=== PATIENT | male | born 1985 | race African-American/Black ===

== ENCOUNTER 2024-08-31 09:20 | Emergency (ER) | payer OTHER, SELFPAY ==
--- NOTE | ~2024-08-31 | XR_ITS ---
EXAMINATION: XR chest 2V DATE: 08/31/2024 09:52 INDICATION: Chest pain TECHNIQUE: PA and lateral views of the chest were obtained. COMPARISON: None FINDINGS: The lungs are clear with no focal airspace opacities, pulmonary edema, pleural effusion or pneumothor ax. The cardiomediastinal silhouette is normal. Mild thoracic spondylosis with chronic appearing mild anterior wedging of a few lower thoracic vertebral bodies. IMPRESSION: 1. No acute cardiopulmonary disease. Reviewed, dictated and finalized at location A.
--- NOTE | 2024-08-31 09:24 | ECG_ITS ---
Test Date: 2024-08-31 09:29:44 Measurements Intervals [place] Rate: 78 P: 58 NH: 144 QRS: 48 QRSD: 86 T: 24 QT: 356 QTc: 406 Interpretive Statements SINUS RHYTHM MINIMAL Q WAVES- INFERIOR LEADS BORDERLINE ECG No previous ECG available for comparison Electronically Signed On 08-31-2024 09:54:03 CDT by Tam Zhou D.O.
[2024-08-31 09:29] VITALS: BP 125/78; PULSE 77; PULSE 79; RESP 18; RESP 7; TEMP 36.6; O2SAT 98; O2SAT 99
[2024-08-31] MEDS: ASPIRIN 81 MG CHEWABLE TABLET 324 MG PO (09:34)
--- NOTE | 2024-08-31 09:38 | ED_ITS ---
HPI - Chest Pain General Chief Complaint: Chest Pain Stated Complaint: chest pain with breath or swallowing Time Seen by Provider: 08/31/24 09:38 Source: patient Mode of arrival: ambulatory Limitations: no limitations History of Present Illness HPI narrative: Patient is a 38-year-old male who presents the ED with report of painful swallowing. Patient reports he developed slight chest tightness yesterday, worse when he would burp or swallow. Pain presented again this morning and was slightly worse than yesterday. Feels as though whenever he eats or drinks something it becomes stuck in his chest. Denies feeling short of breath. Denies N/V, fevers, swelling in legs, Hx of blood clots, FHx of cardiac disease. Denies known hx of GERD. Related Data Allergies Allergy/AdvReac Type Severity Reaction Status Date / Time No Known Allergies Allergy Verified 08/31/24 09:33 Review of Systems 2 Review of Systems: All systems reviewed & are unremarkable except as noted in HPI. All systems reviewed & are unremarkable except as noted in HPI and below Exam 2 Narrative: GENERAL: Well appearing, well-nourished, non-toxic, in no acute distress. HEAD: Normocephalic, atraumatic. RESPIRATORY: Airway patent, respirations nonlabored. Clear to auscultation bilaterally, no rales, rhonchi, wheezing. CARDIOVASCULAR: Regular rate and rhythm without murmurs, rubs, or gallops. MUSCULOSKELETAL: Moves all extremities. No gross deformities. No peripheral edema. No calf tenderness. No midsternal chest wall tenderness to palpation. SKIN: Warm, dry, normal color. NEURO: A&O X3. Speech clear. Cranial nerves II-XII grossly intact. Steady gait. No ataxic movements. PSYCHIATRIC: Appropriate mood and affect. Normal interaction. Course Vital Signs Vital signs: Vital Signs Temperature 97.8 F 08/31/24 09:29 Pulse Rate 77 08/31/24 09:29 Respiratory Rate 18 08/31/24 09:29 Blood Pressure 125/78 08/31/24 09:29 Pulse Oximetry 99 08/31/24 09:29 Oxygen Delivery Room Air 08/31/24 09:29 Temperature 97.8 F 08/31/24 09:29 Pulse Rate 74 08/31/24 11:01 Respiratory Rate 19 08/31/24 11:01 Blood Pressure 123/89 08/31/24 11:01 Pulse Oximetry 100 08/31/24 11:01 Oxygen Delivery Room Air 08/31/24 09:29 MDM - Chest Pain MDM Narrative Medical decision making narrative: EKG without ischemic changes. Troponin undetectable. Low suspicion for ACS. Pain has been ongoing since yesterday. PERC negative. Low suspicion for PE. Denies any SOB. No tachycardia or hypoxia, evidence of DVT on exam. Chest x-ray is clear. Remainder basic laboratory studies are unremarkable. Discussed likelihood of GERD/esophagitis. Patient feeling slightly improved after GI cocktail and Pepcid. Discussed prescribing a PPI for home use. Patient reports he does not feel he will take this. Discussed [id number]-[id number] options if he does feel he needs to take something for his symptoms. Recommended close follow-up with PCP for further evaluation. Given return precautions. He agrees with plan. Discharged in stable condition. Medical Records Data Attestation: I reviewed the patient's medical records. Lab Data Attestation: I reviewed the patient's lab results. 08/31/24 09:36 08/31/24 09:36 Labs: Lab Results 08/31/24 Range/Units 09:36 WBC 9.7 (4.5-10.0) K/mm3 RBC 4.93 (4.6-6.20) M/mm3 Hgb 14.6 (14.0-18.0) g/dL Hct 44.1 (42.0-52.0) % MCV 89.5 (80-100) fl MCH 29.6 (26-34) pg MCHC 33.1 (32-36) g/dl RDW 12.5 (11.5-14.5) % Plt Count 281 (150-375) k/mm3 MPV 10.1 (7.4-10.4) fl Immature Gran % (Auto) 0.3 (0-0.5) % Neut % (Auto) 71.7 (45.5-73.1) % Lymph % (Auto) 18.0 L (18.3-44.2) % [place] % (Auto) 8.7 H (2.6-8.5) % Eos % (Auto) 0.8 (0-4.4) % Baso % (Auto) 0.5 (0.2-1.2) % Lymph # (Auto) 1.74 (0.9-3.2) K/mm3 [place] # (Auto) 0.8 H (0.1-0.6) K/mm3 Eos # (Auto) 0.1 (0-0.3) K/mm3 Baso # (Auto) 0.1 (0.0-0.1) K/mm3 Abs Immat Gran (auto) 0.03 (0.00-0.031) K/mm3 Absolute Neuts (auto) 6.9 H (1.3-6.7) K/mm3 Absolute Nucleated RBC 0.000 (0.0-0.012) K/mm3 Nucleated RBC % 0.0 (0.0-0.2) % PT 12.8 (11.1-14.7) Seconds INR 0.9 APTT 27.8 (22.3-36.8) Seconds Sodium 139 (137-145) mmol/L Potassium 4.5 (3.4-5.0) mmol/L Chloride 106 (98-107) mmol/L Carbon Dioxide 24 (22-30) mmol/L Anion Gap 9 (4-12) mmol/L BUN 13 (9-20) mg/dL Creatinine 1.16 (0.7-1.3) mg/dL Estim Creat Clear Calc 78 ml/min Estimated GFR > 60 (59 - ) Glucose 102 (65-110) mg/dL Calcium 9.4 (8.4-10.2) mg/dL Total Bilirubin 0.8 (0.2-1.3) mg/dL AST 32 (17-59) U/L ALT 29 (6-50) U/L Alkaline Phosphatase 111 (38-126) U/L Troponin I < 0.012 (0.000-0.034) ng/mL Total Protein 8.0 (6.3-8.2) g/dL Albumin 4.5 (3.5-5.1) g/dL Lipase 48 (23-300) U/L Imaging Data Attestation: I personally reviewed and interpreted this imaging study as follows: Radiologist's impression: ITS Impressions Chest X-Ray 08/31/24 10:09 IMPRESSION: 1. No acute cardiopulmonary disease. ECG Data EKG #1: Attestation: I personally reviewed and interpreted this ECG as follows: ECG completion date: 08/31/24 ECG completion time: 09:29 EKG Interpretation: normal rate (78), sinus rhythm and no ST changes Discharge Plan Discharge Clinical Impression: Esophagitis Patient Disposition: Home Condition: Stable Instructions: Antibiotic Form, Diet for Stomach Ulcers and Gastritis (ED), GERD (Gastroesophageal Reflux Disease) (ED), Esophagitis (ED) Additional Instructions: Your workup here was reassuring against a cardiac cause of your chest pain. Recommend taking OTC pepcid or omeprazole as needed for acid reflux. Follow-up with your primary care doctor for further evaluation. Return to the ED for worsening or severe symptoms, difficulty breathing, shortness of breath, difficulty swallowing, unable to keep down food or drink, pain or swelling in your legs, or any other symptoms of concern. Patient Language: Slovenian Follow-up/Referrals: [facility] [Primary Care Provider] - Time of Disposition: 10:44 Quality HEART score for chest pain patients History: slightly suspicious ECG: normal Age: < or = to 45 years Risk factors: 1 or 2 risk factors Troponin: < or = to 1x normal limit Heart score: 1
[2024-08-31 09:41] LABS: Basophils Absolute Auto 0.1 K/mm3 (0.0-0.1); Basophils Percent Auto 0.5 % (0.2-1.2); Eosinophils Absolute Auto 0.1 K/mm3 (0-0.3); Eosinophils Percent Auto 0.8 % (0-4.4); Hematocrit 44.1 % (42.0-52.0); Hemoglobin 14.6 g/dL (14.0-18.0); Immature Granulocyte Absolute 0.03 K/mm3 (0.00-0.031); Immature Granulocyte Percent A 0.3 % (0-0.5); Lymphocytes Absolute Auto 1.74 K/mm3 (0.9-3.2); Mean Corpuscular HGB Conc 33.1 g/dl (32-36); Mean Corpuscular Hemoglobin 29.6 pg (26-34); Mean Corpuscular Volume 89.5 fl (80-100); Mean Platelet Volume 10.1 fl (7.4-10.4); Monocytes Absolute Auto 0.8 K/mm3 (0.1-0.6); Monocytes Percent Auto 8.7 % (2.6-8.5); Neutrophils Absolute Auto 6.9 K/mm3 (1.3-6.7); Neutrophils Percent Auto 71.7 % (45.5-73.1); Platelet Count Result 281 k/mm3 (150-375); Red Blood Count 4.93 M/mm3 (4.6-6.20); Red Cell Distribution Width 12.5 % (11.5-14.5); White Blood Count 9.7 K/mm3 (4.5-10.0)
[2024-08-31] MEDS: Please add drug allergy info to patient profile. 1 EACH XX (09:41)
[2024-08-31 09:51] LABS: Alanine Aminotransferase 29 U/L (6-50); Albumin Level 4.5 g/dL (3.5-5.1); Alkaline Phosphatase 111 U/L (38-126); Anion Gap 9 mmol/L (4-12); Aspartate Amino Transferase 32 U/L (17-59); Bilirubin,Total 0.8 mg/dL (0.2-1.3); Blood Urea Nitrogen 13 mg/dL (9-20); Calcium 9.4 mg/dL (8.4-10.2); Carbon Dioxide 24 mmol/L (22-30); Chloride 106 mmol/L (98-107); Estimated CRCL calculation 78 ml/min; Estimated Glomerular Filt Rate > 60; Glucose 102 mg/dL (65-110); Lipase 48 U/L (23-300); Potassium 4.5 mmol/L (3.4-5.0); Sodium 139 mmol/L (137-145)
[2024-08-31 09:52] LABS: INR 0.9; Prothrombin Time 12.8 Seconds (11.1-14.7)
[2024-08-31 09:53] LABS: Partial Thromboplastin Time 27.8 Seconds (22.3-36.8)
[2024-08-31 10:02] LABS: Troponin I < 0.012 ng/mL (0.000-0.034)
[2024-08-31] MEDS: FAMOTIDINE 20 MG/2 ML VIAL IV PUSH (10:20)
[2024-08-31] MEDS: BELLADONNA ALK/PHENOB ELIX 10 ML, MAG HYDROX/ALUMINUM HYD/SIMETH 30 ML, LIDOCAINE 2% VI... PO (10:20)
[2024-08-31 11:01] VITALS: BP 123/89; PULSE 74; RESP 19; O2SAT 100
--- OUTSIDE RECORDS SUMMARY | 2024-08-31 11:13 | XMS_ITS | Encounter Summary ---
Author Name [facility] [place] Organization [facility] [place] [facility] [place] Address [address] [place] [address] Care Team Providers Care Component Inspector Name Role Phone LIBERTY GONZALEZ Primary Care Provider Unavailabl e Insurance Providers: All historical and current Section Date Range: From patient's date of to the date document was created. This section includes the names of all active insurance providers for the patient. Insurance Provider Type of Coverage Plan Name Start of Policy Coverage End of Policy Coverage Group Number Member ID Insurance Provider's Telephone Number Policy Rodríguez's Name Patient's Relationship to Policy Rodríguez Selected Encounter This section includes the information on record at [place] for the Encounter. Date/Time Encounter Type Encounter Description Reason Pro vider Source Aug 31, 2024 08:39 AM Outpatient Encounter TELEPHONE TRIAGE IHE Encounter Template Text not used by [facility] Encounter Notes: All associated encounter notes This section contains the clinical notes associated to the Encounter. Date/Time Encounter Note(s) Provider Source Aug 31, 2024 08:39 AM RN PROGRESS NOTE: LOCAL TITLE: CCC: CLINICAL TRIAGE STANDARD TITLE: RN PROGRESS NOTE DATE OF NOTE: AUG 31, 2024@08:39:30 ENTRY DATE: AUG 31, 2024@08:39:31 AUTHOR: LAURO KEITH COSIGNER: URGENCY: STATUS: COMPLETED CCC: CLINICAL TRIAGE Has ADDENDA Caller Verification Caller/Recipient Relation to Patient: Self Caller Name: AMANDA CASTRO Emergency Contact: TRICIA VILLAFANA Triage Summary Conducted triage/discussed symptoms Pain Score: 6 (Moderate to Severe Pain) Utilized the Triage Tool: Yes Chief Complaint: Chest Pain right side Nurse's Recommendation / WHEN: Now Nurse's Recommendation / WHERE: ED Other WHEN/WHERE modifier reason: Distance from Hospital Patient Disposition Patient/Caregiver agrees to plan of care: Yes Patient WHERE: ED Other Patient WHEN: Now Patient is Urgent or Emergent Nursing Plan and Disposition Referred patient to higher level of care Instructed to go to Emergency Room (ER) Other course(s) of action Generated msg to PACT/Provider Provided guidance for worsening symptoms: *Caller/Patient* advised to call facilities [place] Clinical Contact Center or seek immediate medical attention for new or worsening symptoms Nurse Summary Nurse Summary: Fernando called and stated that yesterday he was having difficulty swallowing and he started developing some right-sided chest pain. Fernando stated that he thought today it would have improved and fernando states that when he woke up, he continued to have right-sided chest pain that is 5-6 out of 10. Fernando has a history of reflux but denies having a sore throat this morning. Fernando stated that he does not have any neck, arm, or jaw pain currently. Fernando denies any lightheadedness or shortness of breath. Fernando stated that he has not noticed any swelling in his neck, and he did not have any difficulty swallowing food yesterday. Fernando stated that it hurts to take a deep breath in. Fernando was informed that his care recommendation is to be seen in the emergency room now. Fernando was asked if 911. Could be contacted and fernando declined. 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 Fernando will be going to a nearby emergency room which will be [facility]. Fernando was not connected to tele emergency because he is actively having chest pain and was informed that he needs to be seen now. Fernando knows to contact community care within 72 hours. Clinical Contact Center Codes Clinic/Location: 5 ST PHONE CCC RN Decision Support System Output: Triage Complete Triage Date: 08/31/2024, 08:37 AM Triage Note: Decision Support Tool Used: ClearTriage Protocol Used: Chest Pain Protocol-Based Disposition: Go to ED or Consult Tele-EC Now Positive Triage Question: * Taking a deep breath makes pain worse Care Advice Discussed: * Call EMS If - You become worse Negative Triage Questions: * SEVERE difficulty breathing (e.g., struggling for each breath, speaks in single words) * Difficult to awaken or acting confused (e.g., disoriented, slurred speech) * Shock suspected (e.g., cold/pale/clammy skin, too weak to stand, low BP, rapid pulse) * Passed out (e.g., fainted, lost consciousness, blacked out and was not responding) * [1] Chest pain lasts > 5 minutes AND [2] age > 44 * [1] Chest pain lasts > 5 minutes AND [2] age > 30 AND [3] one or more cardiac risk factors (e.g., diabetes, high blood pressure, high cholesterol, obesity with BMI 30 or higher, smoker, or strong family history of heart disease) * [1] Chest pain lasts > 5 minutes AND [2] history of heart disease (i.e., angina, heart attack, heart failure, bypass surgery, takes nitroglycerin) * [1] Chest pain lasts > 5 minutes AND [2] described as crushing, pressure-like, or heavy * Heart beating < 50 beats per minute OR > 140 beats per minute * Visible sweat on face or sweat dripping down face * Sounds like a life-threatening emergency to the triager * SEVERE chest pain * [1] Chest pain (or angina) comes and goes AND [2] is happening more often (increasing in frequency) or getting worse (increasing in severity) (Exception: Chest pains that last only a few seconds.) * Pain also in shoulder(s) or arm(s) or jaw (Exception: Pain is clearly made worse by movement.) * Difficulty breathing * Coughing up blood * Cocaine use within last 3 days * Major surgery in past month * Hip or leg fracture (broken bone) in past month (or had cast on leg or ankle in past month) * Illness requiring prolonged bedrest in past month (e.g., immobilization, long hospital stay) * Long-distance travel in past month (e.g., car, bus, train, plane; with trip lasting 6 or more hours) * History of prior blood clot in leg or lungs (i.e., deep vein thrombosis, pulmonary embolism) * History of inherited increased risk of blood clots (e.g., Factor 5 Leiden, Anti-thrombin 3, Protein C or Protein S deficiency, Prothrombin mutation) * Cancer treatment in past six months (or has cancer now) IMPORTANT: This note was created by [facility] Clinical Contact Center staff. Please do not alert the staff member by adding them as a signer for future communications. Alerts are not monitored by this user. /zacarias/ LAURO KEITH MSN,RN VISN [facility] CLINICAL TRIAGE NURSE Signed: 08/31/2024 08:39 Receipt Acknowledged By: 08/31/2024 09:32 /zacarias/ NICHOLAS EDOUARDN RN REGISTERED NURSE 08/31/2024 09:27 /zacarias/ LIBERTY GONZALEZ PHYSICIAN SPD MANAGER 08/31/2024 ADDENDUM STATUS: COMPLETED Agree with triage recommendation for ER now. /zacarias/ LIBERTY GONZALEZ PHYSICIAN SPD MANAGER Signed: 08/31/2024 09:28 LAURO KEITH [facility]
--- OUTSIDE RECORDS SUMMARY | 2024-08-31 11:13 | XMS_ITS | Encounter Summary ---
Author Name [facility] [place] Address [address] [place] [address] Care Team Providers Care 3D Artist Name Role Phone HARDEEPRICO LIBERTY Primary Care Provider Unavailabl e Insurance Providers: [...] section includes the information on record at [place] for the Encounter. Date/Time Encounter Type Encounter Description Reason Provider Source Apr 22, 2024 03:20 PM HEARING AID CHECK [facility] ICD-10-CM Z46.1 Encounter for fitting and adjustment of hearing aid KASSY HUNT Sapna Encounter Template Text not used by [place] Assessments - Encounter Diagnoses This section includes the primary and secondary diagnoses documented for the Encounter. Date/Time Primary/Secondary Diagnosis Diagnosis Name Provider Source Apr 22, 2024 03:26 PM PRIMARY Encounter for fitting and adjustment of hearing aid KASSY HUNT [facility] Apr 22, 2024 03:26 PM SECONDARY Sensorineural hearing loss, bilateral KASSY HUNT [facility] Plan of Treatment: Future Appointments (+ 6 months) and Future Tests (+/- 45 days) The Plan of Treatment section includes future care activities for the patient from all [place] [facility]. This section includes future appointments and future orders which are active, pending or scheduled. Future Appointments This section includes appointments that were scheduled to occur 6 months from the date of the Encounter, up to a maximum of 20 appointments. The data comes from all [place] treatment facilities. Appointment Date/Time Appointment Type Appointme nt Facility Name Apr 27, 2024 01:00 PM AMBULATORY - MEDICINE [facility] Social History: Smoking Status (Most current) and Tobacco Use (All prior to encounter date) This section includes the most current, and the historical, smoking and tobacco- related health factors from the [place] facility where the Encounter took place. Current Smoking Status This section includes the most current smoking, or tobacco-related health factor, from the [place] facility where the Encounter took place. Date/Time Current Smoking Status Comment Facil ity Sep 30, 2019 03:59 PM VA-TOBACCO USE CURATOR HORTICULTURAL MUSEUM NO [facility] Tobacco Use History This section includes a history of the smoking, or tobacco-related health factors, that were collected on or before the date of the Encounter. The data comes from the [place] facility where the Encounter took place. Date/Time Smoking Status/Tobacco Use Comment F acility Sep 30, 2019 03:59 PM VA-TOBACCO USE 1 TO < 5 YEARS [facility] Sep 30, 2019 03:59 PM VA-TOBACCO USE ADVICE [facility] Sep 30, 2019 03:59 PM VA-TOBACCO USE CURATOR HORTICULTURAL MUSEUM NO [facility] Sep 30, 2019 03:59 PM VA-TOBACCO USE MED NO [facility] Sep 30, 2019 03:59 PM VA-TOBACCO USER EVERY DAY [facility] Oct 09, 2017 10:55 AM CURRENT TOBACCO USER [facility] Oct 09, 2017 10:55 AM CURRENT TOBACCO US ER (NOT READY TO QUIT) [facility] Oct 09, 2017 10:55 AM TOBACCO CESSATION REFERRAL DECLINED [facility] Oct 09, 2017 10:55 AM TOBACCO MEDS OFFER ED BUT DECLINED [facility] Oct 09, 2017 10:55 AM TOBACCO USER OFFERED MEDS [facility] Encounter Notes: All associated encounter notes This section contains the clinical notes associated to the Encounter. Date/Time Encounter Note(s) Provider Source Apr 22, 2024 03:20 PM AUDIOLOGY DIRECTOR OF APPLICATION DEVELOPMENT NOTE: LOCAL TITLE: HEARING AIDS STL STANDARD TITLE: AUDIOLOGY DIRECTOR OF APPLICATION DEVELOPMENT NOTE DATE OF NOTE: APR 22, 2024@15:20 ENTRY DATE: APR 22, 2024@15:20:51 AUTHOR: NATALIIA HUNT COSIGNER: URGENCY: STATUS: COMPLETED SUBJECT: Audio HEARING AIDS STL Has ADDENDA HEARING AID DROP OFF dropped off the following [facility] issued aid(s): 07/14/23 WS AUDIO PURE C&G T 7IX PING-R L [id number] 06/07/[id number] [facility] () [2S roll tube setter, acrylic canal lock earmold] PHONE: [phone] REPORTED PROBLEM: Not turning on after removing from the furniture removalist's assistant. Mail to: [place] [address] REPAIR ACTIONS: Internal filter plugged with wax. Hearing aid(s) cleaned & checked; wax guards changed & microphone ports brushed; listening check suggests WNL hearing aid function. Device not connected to JEWEL to maintain binaural pairing as it is part of a binaural set. was notified of repair actions. [x] requested device(s) be mailed to verified address. PLAN [x] Hearing device(s) mail to [facility] per [facility] request. [x] will curing pickling packer devices at director of front office Address: [place] [address] /es/ PETE FAROOQ Staff Dispenser Operator, [place], CCC-A Signed: 04/22/2024 15:28 04/28/2024 ADDENDUM STATUS: COMPLETED [id number] /zacarias/ OPAL PARIKH Staff Dispenser Operator, Surgery Service Signed: 04/28/2024 08:17 PETE HUNT [facility]
--- OUTSIDE RECORDS SUMMARY | 2024-08-31 11:13 | XMS_ITS | Continuity of Care Document ---
Author Name [facility] Organization [facility] Care Team Providers Care Clay Puddler Name Role Phone [facility] Unavailable Unavailable Problems Combined list of problems from Department of Defense and Veterans Affairs facilities. It does not include entries that were removed or entered in error. 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 DoD Sleep terrors [night terrors] Active 01/10/20 16 Condition DoD Headache Active 08/31/19 16 Condition DoD Admits alcohol use Active Condition [facility] Exposure to potentially hazardous substance Active Condition [facility] Gastroesophageal reflux disease Active Condition [facility] Posttraumatic stress disorder Active Condition [facility] Sensorineural hearing loss of bilateral ears Active Condition [facility] Tinnitus Active Condition [facility] Nondisplaced fracture of distal phalanx of left middle finger Active Condition DoD Displaced fracture of middle phalanx of left middle finger Active Condition DoD Fracture of unspecified phalanx of left middle finger Active Condition DoD HYPERHIDROSIS Active Condition DoD ANKLE SPRAIN LATERAL LIGAMENT Inactive Condition DoD left ankle joint pain Active Condition DoD upper back pain (between shoulder blades) Active Condition DoD visit for: services flight physical Active Condition DoD BACKACHE Active Condition DoD Preventive Medicine Establ. Patient Checkup Adult 18-39 Inactive Condition DoD headache Inactive Condition DoD Patient Counseling: Active Condition Do D UPPER RESPIRATORY INFECTION ACUTE Inactive Condition DoD pain in the thigh Active Condition DoD HIP SPRAIN Inactive Condition DoD GASTROENTERITIS Active Condition DoD CONJUNCTIVITIS ACUTE VIRAL Inactive Condition DoD joint pain, localized in the elbow Active Condition DoD joint pain, localized in the knee Active Condition DoD GASTROENTERITIS VIRAL Inactive Condition DoD visit for: occupational health / fitness exam Inactive Condition DoD UNSPECIFIED MUSCLE STRAIN Inactive Condition DoD PITYRIASIS ROSEA Active Condition DoD visit for: administrative purpose Inactive Condition DoD SUPERFICIAL INJURY - ABRASION OF LEFT CORNEA Active Condition DoD Patient Counseling: Inquiry & Counseling Active Condition DoD EPISTAXIS Inactive Condition DoD PSEUDOFOLLICULITIS BARBAE Active Condition DoD PARTNER RELATIONAL PROBLEM Inactive Condition DoD abdominal pain Active Condition DoD REFRACTIVE ERROR - MYOPIA Inactive Condition DoD midback pain Active Condition DoD joint pain fingers Active Condition DoD FINGER SPRAIN RIGHT MIDDLE FINGER PIP Active Condition No fractur e on radiograph, splinted, f/u prn if no improvement or worsening. Motrin for pain, icing for the first 24-48 hrs to help reduce swelling. DoD visit for: services physical Active Condition DoD Anticipatory Guidance: Unsafe Sexual Practices Inactive Condition Advised pt is much more appropriate to wear a condom than to get repeat STD checks. [facility] Patient Education Active Condition [facility] visit for: follow-up exam Inactive Condition [facility] Diagnosis: ICD-10-CM Z46.1 Encounter for fitting and adjustment of hearing aid Active Diagnosis [facility] Diagnosis: ICD-10-CM Z56.0 Unemployment, unspecified Active Diagnosis [facility] Diagnosis: ICD-10-CM F10.90 Alcohol use, unspecified, uncomplicated Active Diagnosis [facility] Diagnosis: ICD-10-CM Z71.9 Counseling, unspecified Active Diagnosis [facility] Diagnosis: ICD-10-CM F10.99 Alcohol use, unsp with unspecified alcohol-induced disorder Active Diagnosis [facility] Diagnosis: ICD-10-CM Z71.81 Spiritual or islam counseling Active Diagnosis [facility] Diagnosis: ICD-10-CM F10.20 Alcohol dependence, uncomplicated Active Diagnosis [facility] Diagnosis: ICD-10-CM F10.29 Alcohol dependence with unspecified alcohol-induced disorder Active Diagnosis [facility] Diagnosis: ICD-10-CM Z77.29 Contact with and exposure to other hazardous substances Active Diagnosis [facility] Diagnosis: ICD-10-CM F10.10 Alcohol abuse, uncomplicated Active Diagnosis [facility] Diagnosis: ICD-10-CM H90.3 Sensorineural hearing loss, bilateral Active Diagnosis [facility] Diagnosis: ICD-10-CM F43.10 Post-traumatic stress disorder, unspecified Active Diagnosis [facility] Allergies, Adverse Reactions, Alerts Combined list of allergies from Department of Defense and Veterans Affairs facilities. It does not include entries that were removed or entered in error. Substance Category Reaction Severity Reaction type Status Date Reported Comments Source No Known Allergies Drug allergy (disorder) active 06/03/2016 [employer] Immunizations Combined list of available immunizations from the Department of Defense and Veterans Affairs facilities. Immunization Series Date Given Administered By Site Reaction Lot Number CVX Code Drug Warehouse Receiving Clerk Status Comments Source Influenza, injectable, quadrivalent, preservative free 12 2016 [id number] [employer] (SKB) complet ed Influenza , injectabl e, quadrival ent, preservat alberto free DoD measles virus vaccine 0 2016 05 () Not Given measles virus vaccine DoD rubella virus vaccine 0 2016 06 () Not Given rubella virus vaccine DoD mumps virus vaccine 0 2016 07 () Not Given mumps virus vaccine DoD Influenza, seasonal, injectable, preservative free 11 2015 [id number] Seqirus (SEQ) comple t ed Influenza , seasonal, injectabl e, preservat alberto free DoD typhoid Vi capsular polysaccharid e vaccine 4 2015 [id number] 101 Sanofi Pasteur ([facility]) complet ed typhoid Vi capsular polysacch aride vaccine DoD influenza, live, intranasal, quadrivalent 10 2014 [id number] 149 MedImmune, Inc. (MED) complet ed influenza , live, intranasa l, quadrival ent DoD influenza, live, intranasal, quadrivalent 9 2013 [id number] 149 MedImmune, Inc. (MED) complet ed influenza , live, intranasa l, quadrival ent DoD influenza, live, intranasal, quadrivalent 8 2012 [id number] 149 MedImmune, Inc. (MED) complet ed influenza , live, intranasa l, quadrival ent DoD typhoid Vi capsular polysaccharid e vaccine 3 2012 [id number] 101 Sanofi Pasteur ([facility]) complet ed typhoid Vi capsular polysacch aride vaccine DoD influenza virus vaccine, live, attenuated, for intranasal use 1 2011 [id number] 111 MedImmune, Inc. (MED) complet ed influenza virus vaccine, live, attenuate d, for intranasa l use DoD anthrax vaccine 5 2011 [id number] 24 [facility] ([facility]) complet ed anthrax vaccine DoD influenza virus vaccine, live, attenuated, for intranasal use 0 2010 [id number] 111 [employer] (MED) complet ed influenza virus vaccine, live, attenuate d, for intranasa l use DoD hepatitis B vaccine, adult dosage 0 2010 43 () Not Given hepatitis B vaccine, adult dosage DoD anthrax vaccine 4 2010 [id number] 24 [facility] ([facility]) complet ed anthrax vaccine DoD Macedonian Encephalitis vaccine for intramuscular administratio n 2 2010 [id number] 134 [employer] (INT) complet ed Macedonian Encephali tis vaccine for intramusc ular administr ation DoD typhoid Vi capsular polysaccharid e vaccine 1 2009 [id number] 101 Sanofi Pasteur ([facility]) complet ed typhoid Vi capsular polysacch aride vaccine DoD meningococcal polysaccharid e (groups A, C, Y and W-135) diphtheria toxoid conjugate vaccine (MCV4P) 1 2009 [id number] Sanofi Pasteur ([facility]) complet ed meningoco ccal polysacch aride (groups A, C, Y and W-135) diphtheri a toxoid conjugate vaccine (MCV4P) DoD anthrax vaccine 4 2009 [id number] 24 [facility]gent [facility] ([facility]) complet ed anthrax vaccine DoD Macedonian Encephalitis vaccine for intramuscular administratio n 0 2009 [id number] 134 [employer] (INT) complet ed Macedonian Encephali tis vaccine for intramusc ular administr ation [facility] influenza virus vaccine, split virus (incl. purified surface antigen)-reti red CODE 1 2009 [id number] 15 edupristine, Inc. (CSL) complet ed influenza virus vaccine, split virus (incl. purified surface antigen)- retired CODE DoD Novel influenza-H1N 1-09, injectable 1 2009 [id number] 127 Novartis G[employer]. (NOV) complet ed Novel influenza -U7L0-62, injectabl e [facility] influenza virus vaccine, live, attenuated, for intranasal use 1 2008 [id number] 111 [employer] Inc[employer] (MED) complet ed influenza virus vaccine, live, attenuate d, for intranasa l use [facility] tetanus toxoid, reduced diphtheria toxoid, and acellular pertu is vaccine, adsorbed 1 2008 [id number] 115 pic[employer]Kline (SKB) complet ed tetanus toxoid, reduced diphtheri a toxoid, and acellular pertussis vaccine, adsorbed DoD influenza virus vaccine, split virus (incl. purified surface antigen)-reti red CODE 0 2007 [id number] 15 SmithKline (SKB) complet ed influenza virus vaccine, split virus (incl. purified surface antigen)- retired CODE DoD anthrax vaccine 3 2007 [id number] 24 [employer]gent [employer] [place] ([facility]) complet ed anthrax vaccine DoD anthrax vaccine 2 2007 [id number] 24 [employer] [place] ([facility]) complet ed anthrax vaccine DoD anthrax vaccine 1 2007 [id number] 24 [employer] [place] ([facility]) complet ed anthrax vaccine DoD vaccinia (smallpox) vaccine 1 2007 [id number] [facility] ([facility]) complet ed vaccinia (smallpox ) vaccine DoD typhoid Vi capsular polysaccharid e vaccine 1 2007 [id number] 101 Sanofi Pasteur ([facility]) complet ed typhoid Vi capsular polysacch aride vaccine DoD influenza virus vaccine, split virus (incl. purified surface antigen)-reti red CODE 1 2006 [id number] 15 SmithKline (SK) complet ed influenza virus vaccine, split virus (incl. purified surface antigen)- retired CODE DoD hepatitis A vaccine, adult dosage 2 2006 [id number] [id number] 52 [employer] (SK) complet ed hepatitis A vaccine, adult dosage DoD measles, mumps and rubella virus vaccine 1 2006 03 () Not Given measles, mumps and rubella virus vaccine DoD varicella virus vaccine 1 2006 21 () Not Given varicella virus vaccine DoD hepatitis B vaccine, adult dosage 1 2006 43 () Not Given hepatitis B vaccine, adult dosage DoD hepatitis A vaccine, adult dosage 1 2006 [id number] 52 [employer]Gushcloudine (SK) complet ed hepatitis A vaccine, adult dosage DoD tetanus and diphtheria toxoids, adsorbed, preservative free, for adult use (2 Lf of tetanus toxoid and 2 Lf of diphtheria toxoid) 1 2006 [id number] 09 Sanofi Pasteur ([facility]) complet ed tetanus and diphtheri a toxoids, adsorbed, preservat alberto free, for adult use (2 Lf of tetanus toxoid and 2 Lf of diphtheri a toxoid) [facility] poliovirus vaccine, inactivated 1 2006 [id number] 10 Sanofi Pasteur ([facility]) complet ed polioviru s vaccine, inactivat ed DoD influenza virus vaccine, split virus (incl. purified surface antigen)-reti red CODE 1 2006 [id number] 15 Sanofi Pasteur ([facility]) complet ed influenza virus vaccine, split virus (incl. purified surface antigen)- retired CODE DoD Results Combined list of recent chemistry, hematology and other laboratory results from Department of Defense and Veterans Affairs, ranging from 15 months to all on record, depending upon the facility. Order Name Results Value Reference Range Date Interpretation Specimen Comments Source HEPATIC FUNTION PANEL (STL) PROTEIN [MASS/VOLUM E] IN SERUM OR PLASMA 7.9 g/dL 6 - 8.6 04/04 Specimen Type: PLASMA Comment: No hemolysis noted. Ordering Provider: LIBERTY GONZALEZ Report Released Date/Time: Apr 04, 2023 09:38 AM Reporting Lab: [facility] [address] [facility] [address] Performing Lab: [facility] [address] [facility] [address] [facility] HEPATIC FUNTION PANEL (STL) ALBUMIN [MASS/VOLUM E] IN SERUM OR PLASMA 4.3 g/dL 3.4 - 5 04/04 Specimen Type: PLASMA Comment: No hemolysis noted. Ordering Provider: LIBERTY GONZALEZ Report Released Date/Time: Apr 04, 2023 09:38 AM Reporting Lab: [facility] [address] [facility] [address] Performing Lab: [facility] [address] [place] [phone] [facility] HEPATIC FUNTION PANEL (STL) BILIRUBIN.T OTAL [MASS/VOLUM E] IN SERUM OR PLASMA 0.4 mg/dL 0.2 - 1.2 04/04 Specimen Type: PLASMA Comment: No hemolysis noted. Ordering Provider: LIBERTY GONZALEZ Report Released Date/Time: Apr 04, 2023 09:38 AM Reporting Lab: [facility] [address] [facility] [address] Performing Lab: [facility] [address] [facility] [address] [facility] HEPATIC FUNTION PANEL (STL) ALKALINE PHOSPHATASE [ENZYMATIC ACTIVITY/VO LUME] IN SERUM OR PLASMA 121 U/L 40 - 150 04/04 Specimen Type: PLASMA Comment: No hemolysis noted. Ordering Provider: LIBERTY GONZALEZ Report Released Date/Time: Apr 04, 2023 09:38 AM Reporting Lab: [facility] [address] Performing Lab: [place] [address] [facility] [address] [facility] HEPATIC FUNTION PANEL (STL) ASPARTATE AMINOTRANSF ERASE [ENZYMATIC ACTIVITY/VO LUME] IN SERUM OR PLASMA 23 U/L 5 - 34 04/04 Specimen Type: PLASMA Comment: No hemolysis noted. Ordering Provider: LIBERTY GONZALEZ Report Released Date/Time: Apr 04, 2023 09:38 AM Reporting Lab: [facility] [address] Performing Lab: [place] [address] [facility] [address] [facility] HEPATIC FUNTION PANEL (STL) ALANINE AMINOTRANSF ERASE [ENZYMATIC ACTIVITY/VO LUME] IN SERUM OR PLASMA 26 U/L 8 - 40 04/04 Specimen Type: PLASMA Comment: No hemolysis noted. Ordering Provider: LIBERTY GONZALEZ Report Released Date/Time: Apr 04, 2023 09:38 AM Reporting Lab: [facility] [address] Performing Lab: [facility] [address] [place] [phone] [facility] HEPATIC FUNTION PANEL (STL) BILIRUBIN.C ONJUGATED [MASS/VOLUM E] IN SERUM OR PLASMA 0.2 mg/dL 0 - 0.5 04/04 Specimen Type: PLASMA Comment: No hemolysis noted. Ordering Provider: LIBERTY GONZALEZ Report Released Date/Time: Apr 04, 2023 09:38 AM Reporting Lab: [facility] [address] [place] [phone] Performing Lab: [facility] [address] [place] [phone] [facility] BASIC METABOLIC PANEL CREATININE [MASS/VOLUM E] IN SERUM OR PLASMA 1.16 mg/dL 0.7 - 1.3 04/04 Specimen Type: PLASMA Comment: No hemolysis noted. Ordering Provider: LIBERTY GONZALEZ Report Released Date/Time: Apr 04, 2023 09:38 AM Reporting Lab: [address] [address] Performing Lab: [phone] [place] [address] BASIC METABOLIC PANEL UREA NITROGEN [MASS/VOLUM E] IN SERUM OR PLASMA 11.4 mg/dL 9.0 - 25.0 04/04 Specimen Type: PLASMA Comment: No hemolysis noted. Ordering Provider: LIBERTY GONZALEZ Report Released Date/Time: Apr 04, 2023 09:38 AM Reporting Lab: [facility] [address] [place] [phone] Performing Lab: [address] [phone] [facility] BASIC METABOLIC PANEL GLUCOSE [MASS/VOLUM E] IN SERUM OR PLASMA 101 mg/dL 72 - 99 04/04 H Specimen Type: PLASMA Comment: No hemolysis noted. Ordering Provider: LIBERTY GONZALEZ Report Released Date/Time: Apr 04, 2023 09:38 AM Reporting Lab: [facility] [address] [place] [phone] Performing Lab: [address] [phone] [facility] BASIC METABOLIC PANEL SODIUM [MOLES/VOLU ME] IN SERUM OR PLASMA 140 meq/L 136 - 145 04/04 Specimen Type: PLASMA Comment: No hemolysis noted. Ordering Provider: LIBERTY GONZALEZ Report Released Date/Time: Apr 04, 2023 09:38 AM Reporting Lab: [facility] [address] [facility] [address] Performing Lab: [facility] [address] [facility] [address] [facility] BASIC METABOLIC PANEL POTASSIUM [MOLES/VOLU ME] IN SERUM OR PLASMA 4.1 meq/L 3.5 - 5 04/04 Specimen Type: PLASMA Comment: No hemolysis noted. Ordering Provider: LIBERTY GONZALEZ Report Released Date/Time: Apr 04, 2023 09:38 AM Reporting Lab: [facility] [address] [facility] [address] Performing Lab: [facility] [address] [facility] [address] [facility] BASIC METABOLIC PANEL CHLORIDE [MOLES/VOLU ME] IN SERUM OR PLASMA 106 meq/L 98 - 107 04/04 Specimen Type: PLASMA Comment: No hemolysis noted. Ordering Provider: LIBERTY GONZALEZ Report Released Date/Time: Apr 04, 2023 09:38 AM Reporting Lab: [facility] [address] [facility] [address] Performing Lab: [facility] [address] [facility] [address] [facility] BASIC METABOLIC PANEL CARBON DIOXIDE, TOTAL [MOLES/VOLU ME] IN SERUM OR PLASMA 27 meq/L 22 - 31 04/04 Specimen Type: PLASMA Comment: No hemolysis noted. Ordering Provider: LIBERTY GONZALEZ Report Released Date/Time: Apr 04, 2023 09:38 AM Reporting Lab: [facility] [address] [facility] [address] Performing Lab: [facility] [address] [place] [phone] [facility] BASIC METABOLIC PANEL CALCIUM [MASS/VOLUM E] IN SERUM OR PLASMA 9.4 mg/dL 8.4 - 10.4 04/04 Specimen Type: PLASMA Comment: No hemolysis noted. Ordering Provider: LIBERTY GONZALEZ Report Released Date/Time: Apr 04, 2023 09:38 AM Reporting Lab: [facility] [address] [facility] [address] Performing Lab: [facility] [address] [facility] [address] [facility] BASIC METABOLIC PANEL GLOMERULAR FILTRATION RATE/1.73 SQ M.PREDICTED [VOLUME RATE/AREA] IN SERUM, PLASMA OR BLOOD BY CREATININE- BASED FORMULA (CKD-EPI 2020) 83.7 60 04/04 Specimen Type: PLASMA Comment: No hemolysis noted. Ordering Provider: LIBERTY GONZALEZ Report Released Date/Time: Apr 04, 2023 09:38 AM Reporting Lab: [facility] [address] [facility] [address] Performing Lab: [place] [address] [facility] [address] [facility] LIPID PANEL (STL) CHOLESTEROL [MASS/VOLUM E] IN SERUM OR PLASMA 146 mg/dL 0 - 200 04/04 Specimen Type: PLASMA Comment: No hemolysis noted. Ordering Provider: LIBERTY GONZALEZ Report Released Date/Time: Apr 04, 2023 09:38 AM Reporting Lab: [facility] [address] Performing Lab: [address] [phone] [facility] LIPID PANEL (STL) TRIGLYCERID E [MASS/VOLUM E] IN SERUM OR PLASMA 51 mg/dL 0 - 150 04/04 Specimen Type: PLASMA Comment: No hemolysis noted. Ordering Provider: LIBERTY GONZALEZ Report Released Date/Time: Apr 04, 2023 09:38 AM Reporting Lab: [facility] [address] [facility] [phone] Performing Lab: [address] [phone] [facility] LIPID PANEL (STL) CHOLESTEROL IN LDL [MASS/VOLUM E] IN SERUM OR PLASMA BY CALCULATION 76 mg/dL 04/04 Specimen Type: PLASMA Comment: No hemolysis noted. Ordering Provider: LIBERTY GONZALEZ Report Released Date/Time: Apr 04, 2023 09:38 AM Reporting Lab: [facility] [address] [facility] [address] Performing Lab: [facility] [address] [facility] [address] [facility] LIPID PANEL (STL) CHOLESTEROL IN HDL [MASS/VOLUM E] IN SERUM OR PLASMA 60 mg/dL 40 04/04 Specimen Type: PLASMA Comment: No hemolysis noted. Ordering Provider: LIBERTY GONZALEZ Report Released Date/Time: Apr 04, 2023 09:38 AM Reporting Lab: [facility] [address] [facility] [address] Performing Lab: [place] [address] [facility] [phone] [place] [address] CBC LEUKOCYTES [#/VOLUME] IN BLOOD BY AUTOMATED COUNT 6.4 10*3/u L 3.6 - 11.2 04/04 Specimen Type: BLOOD No comment entered. Ordering Provider: LIBERTY GONZALEZ Report Released Date/Time: Apr 04, 2023 09:38 AM Reporting Lab: [facility] [address] [facility] [address] Performing Lab: [place] [address] [facility] [phone] [place] [address] CBC ERYTHROCYTE S [#/VOLUME] IN BLOOD BY AUTOMATED COUNT 4.89 10*6/u L 4.10 - 5.70 04/04 Specimen Type: BLOOD No comment entered. Ordering Provider: LIBERTY GONZALEZ Report Released Date/Time: Apr 04, 2023 09:38 AM Reporting Lab: [facility] [address] [facility] [address] Performing Lab: [place] [address] [facility] [phone] [place] [address] CBC HEMOGLOBIN [MASS/VOLUM E] IN BLOOD 15.0 g/dL 13.1 - 16.8 04/04 Specimen Type: BLOOD No comment entered. Ordering Provider: LIBERTY GONZALEZ Report Released Date/Time: Apr 04, 2023 09:38 AM Reporting Lab: [facility] [address] [facility] [address] Performing Lab: [facility] [address] [facility] [address] [facility] CBC HEMATOCRIT [VOLUME FRACTION] OF BLOOD 44.8 38.2 - 48.4 04/04 Specimen Type: BLOOD No comment entered. Ordering Provider: LIBERTY GONZALEZ Report Released Date/Time: Apr 04, 2023 09:38 AM Reporting Lab: [facility] [address] [facility] [address] Performing Lab: [place] [address] [facility] [address] [facility] CBC MCV [ENTITIC VOLUME] BY AUTOMATED COUNT 91.6 fL 80.0 - 100.0 04/04 Specimen Type: BLOOD No comment entered. Ordering Provider: LIBERTY GONZALEZ Report Released Date/Time: Apr 04, 2023 09:38 AM Reporting Lab: [facility] [address] [facility] [facility] [address] Performing Lab: [facility] [address] [facility] [address] [facility] CBC MCH [ENTITIC MASS] BY AUTOMATED COUNT 30.7 pg 27.0 - 34.0 04/04 Specimen Type: BLOOD No comment entered. Ordering Provider: LIBERTY GONZALEZ Report Released Date/Time: Apr 04, 2023 09:38 AM Reporting Lab: [facility] [address] [facility] [address] Performing Lab: [facility] [address] [facility] [address] [facility] CBC MCHC [MASS/VOLUM E] BY AUTOMATED COUNT 33.5 g/dL 33.0 - 36.0 04/04 Specimen Type: BLOOD No comment entered. Ordering Provider: LIBERTY GONZALEZ Report Released Date/Time: Apr 04, 2023 09:38 AM Reporting Lab: [facility] [address] [facility] [address] Performing Lab: [facility] [address] [facility] [address] [facility] CBC PLATELETS [#/VOLUME] IN BLOOD BY AUTOMATED COUNT 323 10*3/u L 150 - 400 04/04 Specimen Type: BLOOD No comment entered. Ordering Provider: LIBERTY GONZALEZ Report Released Date/Time: Apr 04, 2023 09:38 AM Reporting Lab: [facility] [address] [facility] [address] Performing Lab: [place] [address] [facility] [address] [facility] CBC PLATELET MEAN VOLUME [ENTITIC VOLUME] IN BLOOD BY AUTOMATED COUNT 10.4 fL 7.5 - 11.2 04/04 Specimen Type: BLOOD No comment entered. Ordering Provider: LIBERTY GONZALEZ Report Released Date/Time: Apr 04, 2023 09:38 AM Reporting Lab: [address] [address] Performing Lab: [place] [address] [facility] [address] [facility] CBC ERYTHROCYTE DISTRIBUTIO N WIDTH [RATIO] BY AUTOMATED COUNT 12.4 11.8 - 15.1 04/04 Specimen Type: BLOOD No comment entered. Ordering Provider: LIEBRTY GONZALEZ Report Released Date/Time: Apr 04, 2023 09:38 AM Reporting Lab: [address] [address] Performing Lab: [facility] [address] [facility] [address] [facility] CBC LYMPHOCYTES /100 LEUKOCYTES IN BLOOD BY AUTOMATED COUNT 37 04/04 Specimen Type: BLOOD No comment entered. Ordering Provider: LIBERTY GONZALEZ Report Released Date/Time: Apr 04, 2023 09:38 AM Reporting Lab: [facility] [address] [facility] [address] Performing Lab: [place] [address] [facility] [address] [facility] CBC MONOCYTES/1 00 LEUKOCYTES IN BLOOD BY AUTOMATED COUNT 8 04/04 Specimen Type: BLOOD No comment entered. Ordering Provider: LIBERTY GONZALEZ Report Released Date/Time: Apr 04, 2023 09:38 AM Reporting Lab: [facility] [address] [facility] [address] Performing Lab: [facility] [address] [facility] [address] [facility] CBC NEUTROPHILS /100 LEUKOCYTES IN BLOOD BY AUTOMATED COUNT 51 04/04 Specimen Type: BLOOD No comment entered. Ordering Provider: LIBERTY GONZALEZ Report Released Date/Time: Apr 04, 2023 09:38 AM Reporting Lab: [facility] [address] [facility] [address] Performing Lab: [facility] [address] [facility] [address] [facility] CBC EOSINOPHILS /100 LEUKOCYTES IN BLOOD BY AUTOMATED COUNT 3 04/04 Specimen Type: BLOOD No comment entered. Ordering Provider: LIBERTY GONZALEZ Report Released Date/Time: Apr 04, 2023 09:38 AM Reporting Lab: [facility] [address] [facility] [address] Performing Lab: [facility] [address] [facility] [address] [facility] CBC BASOPHILS/1 00 LEUKOCYTES IN BLOOD BY AUTOMATED COUNT 1 04/04 Specimen Type: BLOOD No comment entered. Ordering Provider: LIBERTY GONZALEZ Report Released Date/Time: Apr 04, 2023 09:38 AM Reporting Lab: [facility] [address] [facility] [address] Performing Lab: [facility] [address] [facility] [address] [facility] CBC LYMPHOCYTES [#/VOLUME] IN BLOOD BY AUTOMATED COUNT 2.36 10*3/u L 0.77 - 4.50 04/04 Specimen Type: BLOOD No comment entered. Ordering Provider: LIBERTY GONZALEZ Report Released Date/Time: Apr 04, 2023 09:38 AM Reporting Lab: [facility] [address] [facility] [address] Performing Lab: [facility] [address] [facility] [address] [facility] CBC MONOCYTES [#/VOLUME] IN BLOOD BY AUTOMATED COUNT 0.51 10*3/u L 0.19 - 0.80 04/04 Specimen Type: BLOOD No comment entered. Ordering Provider: LIBERTY GONZALEZ Report Released Date/Time: Apr 04, 2023 09:38 AM Reporting Lab: [facility] [address] [place] [phone] Performing Lab: [address] [address] [facility] CBC NEUTROPHILS [#/VOLUME] IN BLOOD BY AUTOMATED COUNT 3.30 10*3/u L 2.10 - 8.00 04/04 Specimen Type: BLOOD No comment entered. Ordering Provider: LIBERTY GONZALEZ Report Released Date/Time: Apr 04, 2023 09:38 AM Reporting Lab: [facility] [address] Performing Lab: [facility] [address] [place] [phone] [facility] CBC EOSINOPHILS [#/VOLUME] IN BLOOD BY AUTOMATED COUNT 0.17 10*3/u L 0.00 - 0.60 04/04 Specimen Type: BLOOD No comment entered. Ordering Provider: LIBERTY GONZALEZ Report Released Date/Time: Apr 04, 2023 09:38 AM Reporting Lab: [facility] [address] [facility] [address] Performing Lab: [facility] [address] [place] [phone] [facility] CBC BASOPHILS [#/VOLUME] IN BLOOD BY AUTOMATED COUNT 0.05 10*3/u L 0.00 - 0.20 04/04 Specimen Type: BLOOD No comment entered. Ordering Provider: LIBERTY GONZALEZ Report Released Date/Time: Apr 04, 2023 09:38 AM Reporting Lab: [facility] [address] [place] [phone] Performing Lab: [facility] [address] [facility] [address] [facility] URINALYSI S (STL) COLOR OF URINE Light- Yellow 04/04 Specimen Type: URINE No comment entered. Ordering Provider: LIBERTY GONZALEZ Report Released Date/Time: Apr 04, 2023 09:38 AM Reporting Lab: [place] [address] [facility] [address] Performing Lab: [place] [address] [facility] [address] [facility] URINALYSI S (STL) BILIRUBIN.T OTAL [PRESENCE] IN URINE BY TEST STRIP Negati vemg/d L 04/04 Specimen Type: URINE No comment entered. Ordering Provider: LIBERTY GONZALEZ Report Released Date/Time: Apr 04, 2023 09:38 AM Reporting Lab: [place] [address] [facility] [address] Performing Lab: [place] [address] [facility] [address] [facility] URINALYSI S (STL) PH OF URINE BY TEST STRIP 6.0 5.0 - 8.0 04/04 Specimen Type: URINE No comment entered. Ordering Provider: LIBERTY GONZALEZ Report Released Date/Time: Apr 04, 2023 09:38 AM Reporting Lab: [place] [address] [facility] [address] Performing Lab: [place] [address] [facility] [address] [facility] URINALYSI S (STL) APPEARANCE OF URINE Clear 04/04 Specimen Type: URINE No comment entered. Ordering Provider: LIBERTY GONZALEZ Report Released Date/Time: Apr 04, 2023 09:38 AM Reporting Lab: [place] [address] [facility] [address] Performing Lab: [facility] [address] [facility] [address] [facility] URINALYSI S (STL) NITRITE [PRESENCE] IN URINE BY TEST STRIP Negati vemg/d L 04/04 Specimen Type: URINE No comment entered. Ordering Provider: LIBERTY GONZALEZ Report Released Date/Time: Apr 04, 2023 09:38 AM Reporting Lab: [facility] [address] [facility] [address] Performing Lab: [facility] [address] [place] [phone] [facility] URINALYSI S (STL) GLUCOSE [MASS/VOLUM E] IN URINE BY TEST STRIP Normal mg/dL 04/04 Specimen Type: URINE No comment entered. Ordering Provider: LIBERTY GONZALEZ Report Released Date/Time: Apr 04, 2023 09:38 AM Reporting Lab: [facility] [address] [facility] [address] Performing Lab: [facility] [address] [place] [phone] [place] [address] URINALYSI S (STL) PROTEIN [MASS/VOLUM E] IN URINE BY TEST STRIP 10 mg/dL - 20 04/04 H Specimen Type: URINE No comment entered. Ordering Provider: LIBERTY GONZALEZ Report Released Date/Time: Apr 04, 2023 09:38 AM Reporting Lab: [facility] [address] [facility] [address] Performing Lab: [facility] [address] [place] [phone] [facility] URINALYSI S (STL) URN.UROBILI NOGEN Normal mg/dL 04/04 Specimen Type: URINE No comment entered. Ordering Provider: LIBERTY GONZALEZ Report Released Date/Time: Apr 04, 2023 09:38 AM Reporting Lab: [facility] [address] [facility] [address] Performing Lab: [facility] [address] [place] [phone] [facility] URINALYSI S (STL) HEMOGLOBIN [MASS/VOLUM E] IN URINE BY TEST STRIP Negati vemg/d L 04/04 Specimen Type: URINE No comment entered. Ordering Provider: LIBERTY GONZALEZ Report Released Date/Time: Apr 04, 2023 09:38 AM Reporting Lab: [facility] [address] [place] [phone] Performing Lab: [facility] [address] [place] [phone] [place] [address] URINALYSI S (STL) KETONES [MASS/VOLUM E] IN URINE BY TEST STRIP Negati vemg/d L 04/04 Specimen Type: URINE No comment entered. Ordering Provider: LIBERTY GONZALEZ Report Released Date/Time: Apr 04, 2023 09:38 AM Reporting Lab: [facility] [address] [place] [address] Performing Lab: [address] [phone] URINALYSI S (STL) URN.LEUK.ES T. Negati vemg/d L 04/04 Specimen Type: URINE No comment entered. Ordering Provider: LIBERTY GONZALEZ Report Released Date/Time: Apr 04, 2023 09:38 AM Reporting Lab: [facility] [address] [place] [phone] Performing Lab: [address] [phone] [place] [address] URINALYSI S (STL) SPECIFIC GRAVITY OF URINE 1.028 1.005 - 1.029 04/04 Specimen Type: URINE No comment entered. Ordering Provider: LIBERTY GONZALEZ Report Released Date/Time: Apr 04, 2023 09:38 AM Reporting Lab: [facility] [address] [place] [phone] Performing Lab: [facility] [address] [place], [place] [phone] HGA1C HEMOGLOBIN A1C/HEMOGLO BIN.TOTAL IN BLOOD 5.2 4.0 - 6.0 04/04 Specimen Type: BLOOD No comment entered. Ordering Provider: LIBERTY GONZALEZ Report Released Date/Time: Apr 04, 2023 09:38 AM Reporting Lab: [facility] [address] [facility] [address] Performing Lab: [facility] [address] [facility] [address] [facility] Encounters Combined list of: 1) Encounters from Department of [facility] Affairs facilities going backup to the last 18 months, not all NH inpatient encounters are included; 2) Encounters from the Department of Defense facilities going backup to 280 months. Location Location Details Encounter Type Encounter Number Reason For Visit Attending Provider ADM Date DC Date Status Disposition Source [facility] [place] [address]([facility]) OUTPATIENT [id number] needs AVERY Bosch 06/09 Released w/o Limitations [facility] [place] [address]([facility] [place]) [employer]jit SHANNON ([facility] jeniffer Practice Non-GME FHI1) OUTPATIENT [id number] Medical Right MITCH Maldonado 11/04 Released w/o Limitations [facility] Jagjit KELLYB ([facility])(F amily Practic e Non-GME FHI1) [address] [place] [address] Jagjit KELLYB ([facility])([facility]) OUTPATIENT [id number] Annual RIC MARCUS 12/02 Released w/o Limitations [facility] Jagjit KELLYB ([facility])([facility] Medical [facility] Jagjit KELLYB ([facility])([facility] jeniffer Practice Non-GME FHI2) OUTPATIENT [id number] wk; STD change RADHA SANTOS 04/28 Released w/o Limitations [employer] ([facility])(F amily Practic e Non-GME FHI2) [facility] [employer] ([facility])([facility] jeniffer Practice Non-GME FHI1) OUTPATIENT [id number] right middle finger nuckle swollen SONI CASTANEDA 10/13 Released w/o Limitations [employer] ([facility])(F amily Practic e Non-GME FHI1) [facility] [employer] ([facility])(Fam jeniffer Practice Non-GME FHI1) [facility]PAT[facility] [id number] [facility] RIC MARCUS 11/03 Released w/o Limitations [facility])(F amily Practic e Non-GME FHI1) [facility])(Fam jeniffer Practice Non-GME FHI1) OUTPATIENT [id number] [facility] (8) RIC MARCUS 11/03 Released w/o Limitations [facility])(F amily Practic e Non-GME FHI1) [facility])(Fam jeniffer Practice Non-GME FHI1) OUTPATIENT [id number] finger injury (previo us) RADHA SANTOS 11/30 Released w/o Limitations [address] [place], [place] [address]B [facility]F amily Practic e Non-GME FHI1) [facility] OUTPATIENT [id number] 12/17 Released w/o Limitations [employer] [facility] [facility] OUTPATIENT [id number] 12/21 Released w/o Limitations [employer] [facility] OUTPATIENT [id number] 12/25 Released w/o Limitations [employer] [facility] OUTPATIENT [id number] 12/28 Released w/o Limitations [facility] OUTPATIENT [id number] 12/30 Released w/o Limitations [employer] [facility] [facility] OUTPATIENT [id number] 12/31 Released w/o Limitations [employer] [facility] [facility] OUTPATIENT [id number] 01/07 Released w/o Limitations [employer] [facility] OUTPATIENT [id number] 01/13 Released w/o Limitations [employer] [facility] OUTPATIENT [id number] 01/19 Released w/o Limitations [facility] OUTPATIENT [id number] 02/01 Released w/o Limitations [facility] OUTPATIENT [id number] 02/12 Released w/o Limitations [facility] OUTPATIENT [id number] 02/15 Released w/o Limitations [facility] OUTPATIENT [id number] 03/06 Sick at Home/Quarter s [employer] [facility] [facility] OUTPATIENT [id number] 04/04 Released w/o Limitations Theater Facilit y [employer] ([facility])(Fam jeniffer Med Tm B Non-AD BCC) OUTPATIENT [id number] stomach pain SONI CASTANEDA 06/28 Released w/o Limitations [employer] SHANNON ([facility])(F amily Med Tm B Non-AD BCC) [employer] SH[employer]ON ([facility])([facility] Team 4) OUTPATIENT [id number] recurri ng abd pain DANIELLE RADHA E 07/05 Released w/o Limitations [employer] ([facility])([facility] Team 4) [facility] [employer] ([facility])([facility] Team 4) OUTPATIENT [id number] stomach pain/di arrhea DANIELLE RADHA E 08/17 Released w/o Limitations [employer] ([facility])([facility] Team 4) [facility] [employer] ([facility])([facility] Team 4) OUTPATIENT [id number] noseble eds JUVENTINO HICKMAN 01/02 Released w/o Limitations [employer] ([facility])([facility] Team 4) [facility] [employer] Jagjit SHANNON [facility])([facility] Flight Medicine ) OUTPATIENT [id number] [facility]pha(9) NORY LUI 02/15 Released w/o Limitations [employer] ([facility])([facility] Flight Medicin e Tm) [facility] [employer] ([facility])([facility] Team 4) TELE CONSULT [id number] Ferdinand /STAT referra JUVENTINO Song 02/27 [employer] ([facility])([facility] Team 4) [facility] [employer] ([facility])(War rior Op Med Cln Tm A Ad) TELE CONSULT [id number] Shingle s like rash all over body/La UMU Rodriguez 08/07 [employer] ([facility])(W arrior Op Med Cln Tm A Ad) [employer] ([facility])(Fam jeniffer Med Tm B Non-AD BCC) OUTPATIENT [id number] Otilia CASTANEDA SONI True 08/07 Released w/o Limitations [employer] ([facility])(F amily Med Tm B Non-AD BCC) [employer] ([facility])(Sco tt [facility] Team 3) OUTPATIENT [id number] fortino olivia margarita...[phone] ROGELIO SAUCEDO 12/07 Released w/o Limitations [employer] LETICIAB ([facility])([facility] Team 3) [employer] ([facility])(War rior Op Med Cln Tm A Ad) OUTPATIENT [id number] sep physica l [phone] JUVENTINO HICKMAN 02/28 Released w/o Limitations [employer] ([facility])(W arrior Op Med Cln Tm A Ad) [employer] ([facility])([facility] Fam Res Tm Green) OUTPATIENT [id number] [facility]NORY FELIX 03/06 Released w/o Limitations [employer] ([facility])([facility] Fam Res Tm Green) [facility] Jagjit LETICIAB [facility])(War rior Op Med Cln Tm A Ad) OUTPATIENT [id number] diahrea [phone] AJ ZUNIGA 04/06 Released w/o Limitations [employer] ([facility])(W arrior Op Med Cln Tm A Ad) [facility] [employer] [facility] Jagjit KELLYB [facility])(Sco tt [facility] Team 3) OUTPATIENT [id number] pain in right knee and elbow [phone] [place] 04/12 Released w/o Limitations [employer] ([facility])([facility] Team 3) [employer] ([facility])(War rior Op Med Cln Tm A Ad) TELE CONSULT [id number] Lab results . UMU SOLANO 04/20 [employer] ([facility])(W arrior Op Med Cln Tm A Ad) [employer]([facility]) TELE CONSULT [id number] MEDICAT ION REQUEST DASHAWN CLEARY 11/27 [employer](F amily Practic e Clinic) [employer]([facility] Medicine [facility]) OUTPATIENT [id number] red eye LOUISMARKUS PETERSON 03/19 Released w/o Limitations [employer](F light Medicin e Clinic) [employer](Stanley bernal [facility] Team A) OUTPATIENT [id number] PHA ANNUAL JUVENTINO GILLIS 03/22 Released w/o Limitations [employer](Tomas valle [facility] Team A) [facility] Medicine [facility]) OUTPATIENT [id number] diarrhe a/vomit DONNA Gonzalez 06/12 Sick at Home/Quarter s [employer]( light Medicin e Clinic) [facility] Medicine [facility]) OUTPATIENT [id number] Notes Entered by: JANE LOPEZ 02 Jul 2011 1028 ------- ------- ------- ------- -- incenti ve flight DONNA MICHAELS 07/01 Released w/o Limitations [employer]( light Medicin e Clinic) [employer]([facility]) OUTPATIENT [id number] painin left knee MELANY LARIOS 10/24 Released w/o Limitations [employer]([facility]) [facility](PT Physical Thpy-Out) OUTPATIENT [id number] Knee joint pain MICHELLE MARTÍNEZ 10/28 Released w/o Limitations [employer](P T Physica l Thpy-Ou t) [employer](Meron rgency Services) OUTPATIENT [id number] DOROTEO GARG 01/08 Released w/o Limitations [employer](E mergenc y Service s) [employer]([facility]) TELE CONSULT [id number] Notes Entered by: SANIA COLINDRES 09 Jan 2012 0659 ------- ------- ------- ------- -- AD PATIENT ACUTE APPT MELANY LARIOS 01/08 [employer]([facility]) [employer]([facility]) OUTPATIENT [id number] Notes Entered by: KELLEY ROMAN 14 Jan 2012 1156 ------- ------- ------- ------- -- pulled niko ng SARAH BETH GONZALEZ P 01/13 Released w/o Limitations [employer]([facility]) [employer]([facility]) OUTPATIENT [id number] cough, sore throat, and head congest ion MELANY LARIOS 03/19 Released w/o Limitations [employer]([facility]) [employer]([facility] Preventiv e Med) OUTPATIENT [id number] ZAN Mehta 04/08 Released w/o Limitations [employer]([facility] [employer] Prevent alberto Med) [employer]([facility]) TELE CONSULT [id number] Notes Entered by: Fernanda CLEMENTS 22 May 2012 1039 ------- ------- ------- ------- -- Active Duty Acute appt request SARAH BETH GONZALEZ P 05/22 [employer]([facility]) [employer]([facility]) OUTPATIENT [id number] Notes Entered by: PAIGE HARP 16 Jun 2012 1432 ------- ------- ------- ------- -- belize 14 days JOANN DIAZ 06/16 Released w/o Limitations [employer] [employer]([facility]) OUTPATIENT [id number] back and ankle pain SARAH BETH GONZALEZ 09/14 Released w/o Limitations [employer]([facility]) [employer](Opt ometry [facility]) OUTPATIENT [id number] Prevent alberto Medicin e Establ. Patient Checkup Adult 18-39 CAROLYN HASSAN P 09/28 Released w/o Limitations [employer](O ptometr y Clinic) [employer]([facility]) OUTPATIENT [id number] ongoing lower back pain ERNST MEDINA 12/23 Released w/o Limitations [employer](P T Family [facility]) [employer](PT Physical Thpy-Out) OUTPATIENT [id number] Pas entered the order JEANMARIELEBRON DARYABRETT J 01/04 Released w/o Limitations [employer](P T Physica l Thpy-Ou t) [employer]([facility]) OUTPATIENT [id number] left ankle SARAH BETH GONZALEZ P 01/21 Released w/o Limitations [employer]([facility]) [employer]([facility]) OUTPATIENT [id number] SARAH BETH GONZALEZ P 02/18 Released w/o Limitations [employer]([facility]) [employer](Opt ometry Clinic) OUTPATIENT [id number] Notes Entered by: GABBY WRAY 25 Mar 2013 0735 ------- ------- ------- ------- -- Laser Safety Exam LYNDA PHELPS 03/25 Released w/o Limitations [employer](O ptometr y Clinic) [employer]([facility]) OUTPATIENT [id number] pt states he reinjur ed his left ankle SARAH BETH GONZALEZ P 04/12 Released w/o Limitations [employer]([facility]) [employer]([facility]) OUTPATIENT [id number] Notes Entered by: BILL LANCASTER 29 Jun 2013 1354 ------- ------- ------- ------- -- pre-dep ALLA Quevedo 06/29 Released w/o Limitations [employer](F light Medicin e [facility]) [employer]([facility] Medicine [facility]) OUTPATIENT [id number] Notes Entered by: GAYLE CHRIS 30 Jun 2013 1021 ------- ------- ------- ------- -- Pre deploy ent ALLA ESTRADA 06/30 Released w/o Limitations [employer](F light Medicin e [facility]) [employer]([facility]) OUTPATIENT [id number] Notes Entered by: LUL ALLEN 30 Jun 2013 1304 ------- ------- ------- ------- -- Pre deploym ent ALLA CHRIS 06/30 Released w/o Limitations [employer](F light Medicin e [facility]) [employer]([facility] [address]) OUTPATIENT [id number] Severe back pain NOHELIA-W MANDEEP PERERA A 09/23 Released w/o Limitations [employer](F [facility] [place]) [employer](PT Physical [facility]py-Out) OUTPATIENT [id number] LOWER BACK SPRAIN [place] MEDINAC[place]la Simmons 10/11 Released w/o Limitations [employer](P T Physica l Thpy-Ou t) [employer]([facility]) OUTPATIENT [id number] pt states he has rash in groin area since yesterd GRANT Pope 02/07 Released w/o Limitations [employer]([facility]) [employer]([facility] [address]) OUTPATIENT [id number] Notes Entered by: MICA PERALES 05 Jul 2014 1013 ------- ------- ------- ------- -- lower back pain NOHELIA-W MANDEEP PERERA A 07/05 Released w/o Limitations [employer]([facility] [place]) [employer](PT Family Health) OUTPATIENT [id number] LUMBAGO WITH SCIATIC A ESTELLE GONZALEZ 07/18 Released w/o Limitations [employer](P T Family [facility]) [employer](PT Physical [facility]-Out) OUTPATIENT [id number] RICARDO MADDOX 07/19 Released w/o Limitations [employer](P T Physica l [facility]u t) [employer](PT Physical [facility]) OUTPATIENT [id number] MADDOX RICARDO A 07/26 Released w/o Limitations [employer](P T Physica l Thpy[facility]Ou t) [employer](PT Physical [facility]Out) OUTPATIENT [id number] ZAC MAGDALENO 08/09 Released w/o Limitations [employer](P T Physica l Thpy-Ou t) [employer](Fli ght Medicine [facility]) OUTPATIENT [id number] PHA - H2 HEATHER MCKINNEY Sebastian 08/25 Released w/o Limitations [employer](F light Medicin e [facility]) [employer]([facility] [address]) OUTPATIENT [id number] cold symptom s TAPAN PULIDO 10/07 Released w/o Limitations [employer](F [facility] [place]) [employer](Chi ropractic -Clinic) OUTPATIENT [id number] Mid-Low Back JEFRY ALEXANDRA 11/03 Released w/o Limitations [employer](C hiropra ctic-Cl inic) [employer]([facility]am [facility] [address]) TELE CONSULT [id number] Notes Entered by: REBECCA ACOSTA AMS 09 May 2015 1037 ------- ------- ------- ------- -- Severe under arm sweatin g MANDEEP RAMIREZ 05/09 [employer]([facility] [place]) [employer]([facility] [address]) TELE CONSULT [id number] Notes Entered by: REBECCA ACOSTA AMS 13 May 2015 1333 ------- ------- ------- ------- -- Lab results MANDEEP RAMIREZ 05/13 [employer]([facility] [place]) [employer]([facility]) OUTPATIENT [id number] Primary focal hyperhi drosis, unspeci JANE Almanzar 06/06 Released w/o Limitations [employer](D ermatol ogy Clinic) [employer]([facility]) OUTPATIENT [id number] botox axiJANE Hilton 06/21 Released w/o Limitations [employer](D ermatol ogy Clinic) [employer]([facility]) OUTPATIENT [id number] SONI Hoff 07/17 Released w/o Limitations [employer]( amil Health [facility]) [employer](Inf ectious Disease [facility] 0073) OUTPATIENT [id number] travel on mission to [facility] JUAN Munoz 07/24 Released w/o Limitations [employer](I nfectio us Disease Clinic 0073) [employer]([facility]) TELE CONSULT [id number] Notes Entered by: Tomas LAMBERT 01 Aug 2015 1322 ------- ------- ------- ------- -- No-Show JACE BEASLEY 07/31 [employer]([facility]) [employer]([facility]) TELE CONSULT [id number] Notes Entered by: VALERIE JI 04 Aug 2015 1049 ------- ------- ------- ------- -- refill med DELONTE JIMENEZ 08/03 Other Not Elsewhere Classified [employer]([facility]) [employer](Urg ent Care Clinic) OUTPATIENT [id number] migrain es NIDIA COTTO 08/30 Released w/o Limitations [employer]([facility]) [employer]([facility] [address]) OUTPATIENT [id number] painful cut on the righ AJ Dunne 09/05 Released w/o Limitations [employer]([facility] [place]) [employer](Urg ent Care Clinic) OUTPATIENT [id number] left middle finger injury NIDIA COTTO 10/01 Released w/o Limitations [employer](U [facility]) [employer](Ort hopedic Clinic) OUTPATIENT [id number] Fractur e of unspeci fied phalanx of left middle finger, initial encount er for c DREA ESCALANTE 10/01 Released with Work/Duty Limitations [employer](O rthoped ic Clinic) [employer](Ort hopedic Clinic) OUTPATIENT [id number] Notes Entered by: Sebastian ESCALANTE 04 Oct 2015 0642 ------- ------- ------- ------- -- Outpt Surgery - Left Long Finger Middle Phalanx Fractur e DREA ESCALANTE 10/03 Released with Work/Duty Limitations [employer](O rthoped ic Clinic) [employer]([facility] upational Therapy Clinic) OUTPATIENT [id number] WERNER MATIAS 10/08 Released w/o Limitations [employer](O ccupati onal Therapy Clinic) [employer](Ort hopedic Clinic) OUTPATIENT [id number] 1st pop left long finger orif; dos [id number] DREA ESCALANTE 10/16 Released w/o Limitations [employer](O rthoped ic Clinic) [employer]([facility] upational Therapy Clinic) OUTPATIENT [id number] WERNER MATIAS 10/18 Released w/o Limitations [employer](O ccupati onal Therapy Clinic) [employer]([facility] upational Therapy Clinic) OUTPATIENT [id number] Displac ed fractur e of medial phalanx of left middle finger, initial encount er TERA MARTINEZ 10/24 Released w/o Limitations [employer](O ccupati onal Therapy Clinic) [employer](Ort hopedic Clinic) TELE CONSULT [id number] Notes Entered by: SANTOS RAND 25 Oct 2015 1116 ------- ------- ------- ------- -- Concern s DREA ESCALANTE 10/24 [employer](O rthoped ic Clinic) [employer](Occ upational Therapy Clinic) OUTPATIENT [id number] TERA MARTINEZ P 10/26 Released w/o Limitations [employer](O ccupati onal Therapy Clinic) [employer](Occ upational Therapy Clinic) OUTPATIENT [id number] POSTERA PRESSLEY P 10/31 Released w/o Limitations [employer](O ccupati onal Therapy Clinic) [employer](Ort hopedic Clinic) OUTPATIENT [id number] f/u 1st Post-op , no xray needed DREA ESCALANTE 11/02 Released w/o Limitations [employer](O rthoped ic Clinic) [employer](Fli ght Medicine [facility] Clinic) OUTPATIENT [id number] Notes Entered by: SHEEBA BLANCO 08 Nov 2015 0950 ------- ------- ------- ------- -- // Non F2F PHA- Phase 1 HEATHER MCKINNEY 11/07 Released w/o Limitations [employer](F light Medicin e [facility] Clinic) [employer](Occ upational Therapy Clinic) OUTPATIENT [id number] TERA MARTINEZ 11/07 Released w/o Limitations [employer](O ccupati onal Therapy Clinic) [employer](Occ upational Therapy Clinic) OUTPATIENT [id number] WERNER MATISA 11/12 Released w/o Limitations [employer](O ccupati onal Therapy Clinic) [employer](Ort hopedic Clinic) OUTPATIENT [id number] L)hand xrays needed DREA ESCALANTE 11/20 Released w/o Limitations [employer](O rthoped ic Clinic) [employer](Occ upational Therapy Clinic) OUTPATIENT [id number] CHANCE VALERO 11/23 Released w/o Limitations [employer](O ccupati onal Therapy Clinic) [employer](Occ upational Therapy Clinic) OUTPATIENT [id number] TERA MARTINEZ P 11/27 Released w/o Limitations [employer](O ccupati onal Therapy Clinic) [employer](Occ upational Therapy Clinic) OUTPATIENT [id number] WERNER MATIAS 11/30 Released w/o Limitations [employer](O ccupati onal Therapy Clinic) [employer](Occ upational Therapy Clinic) OUTPATIENT [id number] CHANCE VALERO 12/07 Released w/o Limitations [employer](O ccupati onal Therapy Clinic) [employer](Occ upational Therapy Clinic) OUTPATIENT [id number] CHANCE VALERO 12/11 Released w/o Limitations [employer](O ccupati onal Therapy Clinic) [employer](Occ upational Therapy Clinic) OUTPATIENT [id number] CHANCE VALERO 12/14 Released w/o Limitations [employer](O ccupati onal Therapy Clinic) [employer](Occ upational Therapy Clinic) OUTPATIENT [id number] f/u WERNER MATIAS 01/01 Released w/o Limitations [employer](O ccupati onal Therapy Clinic) [employer]([facility] ent Care Clinic) OUTPATIENT [id number] NIDIA Kaur 01/09 Released with Work/Duty Limitations [employer] [employer](Occ upational Therapy Clinic) OUTPATIENT [id number] SURY JEFFRIES CPT 01/09 Released w/o Limitations [employer](O ccupati onal Therapy Clinic) [employer](Occ upational Therapy Clinic) OUTPATIENT [id number] CHANCE VALERO 01/16 Released w/o Limitations [employer](O ccupati onal Therapy Clinic) [employer]([facility] Health [facility]) OUTPATIENT [id number] intial visit TINO GREWAL 01/21 Released w/o Limitations [employer]) [employer](Occ upational Therapy Clinic) OUTPATIENT [id number] CHANCE VALERO 01/23 Released w/o Limitations [employer](O ccupati onal Therapy Clinic) [employer](Ort hopedic Clinic) OUTPATIENT [id number] f/u L)Hand xray needed DREA ESCALANTE Sebastian 02/01 Released w/o Limitations [employer](O rthoped ic Clinic) [employer](Urg ent Care Clinic) TELE CONSULT [id number] Notes Entered by: Dorcas BENAVIDES 27 Mar 2016 1111 ------- ------- ------- ------- -- Appt request NIDIA COTTO 03/27 [employer](U ent Care Clinic) [employer]([facility] ent Care Clinic) OUTPATIENT [id number] lower back pain that radiate s to his left hip NIDIA COTTO 03/28 Released w/o Limitations [employer](U [facility]) [employer](PT Family [facility]) OUTPATIENT [id number] initial ROGER LE 03/29 Released w/o Limitations [employer](P T Family Health) [employer](Ort [facility]) OUTPATIENT [id number] f/u L)Long finger xrays needed DREA ESCALANTE Sebastian 04/05 Released w/o Limitations [employer](O rthoped ic Clinic) [employer](PT Physical Thpy-Out) OUTPATIENT [id number] DEBORAH BUNN 04/11 Released w/o Limitations [employer](P T Physica l Thpy-Ou t) [employer](PT Physical Thpy-Out) OUTPATIENT [id number] [facility] 04/25 Released w/o Limitations [employer](P T Physica l Thpy-Ou t) [employer](PT Physical Thpy-Out) OUTPATIENT [id number] [facility] 05/01 Released w/o Limitations [employer](P T Physica l Thpy-Ou t) [employer](Urg ent Care Clinic) OUTPATIENT [id number] hip and back pain NIDIA COTTO 06/03 Released w/o Limitations [employer](U rgent Care Clinic) [employer]([facility] ent Care Clinic) TELE CONSULT [id number] Notes Entered by: CATY TRAN 07 Jun 2016 1450 ------- ------- ------- ------- -- Pt needs Col. Clay harris to sign profile YADIEL, NIDIA L 06/07 [employer]([facility]) [employer]([facility] ent [facility]) TELE CONSULT [id number] Notes Entered by: ROGERS HOWARD 07 Jun 2016 1543 ------- ------- ------- ------- -- profile YADIEL NIDIA L 06/07 [employer]([facility]) [employer]([facility] ent [facility]) TELE CONSULT [id number] Notes Entered by: Marian PARIKH 10 Jun 2016 1340 ------- ------- ------- ------- -- Gricel COTTO NIDIA L 06/10 [employer] [employer] ent [facility]) TELE CONSULT [id number] Notes Entered by: DOM CHAVEZ 13 Jun 2016 0605 ------- ------- ------- ------- -- Profile update DELONTE JIMENEZ 06/13 Other Not Elsewhere Classified [employer]([facility]) [employer]([facility] ropractic -Clinic) OUTPATIENT [id number] JEFRY ALEXANDRA 06/21 Released w/o Limitations [employer](C hiropra ctic-Cl inic) [employer]([facility] ropractic -Clinic) OUTPATIENT [id number] JEFRY ALEXANDRA 07/01 Released w/o Limitations [employer](C hiropra ctic-Cl inic) [facility]) TELE CONSULT [id number] Notes Entered by: MARYSOL KEENE 04 Jul 2016 1439 ------- ------- ------- ------- -- Network Results Sleep Study [id number] JOSE JIMENEZTHANG Garcia 07/04 Other Not Elsewhere Classified [employer]([facility]) [employer]([facility] ent Care Clinic) TELE CONSULT [id number] Notes Entered by: ILEANA BARRIENTOS 23 Jul 2016 1515 ------- ------- ------- ------- -- Network Results Sleep Lab Dos 017 BARBARA DELONTE Garcia 07/23 Other Not Elsewhere Classified [employer](U [facility]) [employer](PT Physical Thpy-Out) OUTPATIENT [id number] LIVIA Horta 08/05 Released w/o Limitations [employer](P T Physica l Thpy-Ou t) [employer]([facility] ent Care Clinic) OUTPATIENT [id number] carpul tunnel NIDIA COTTO 08/20 Released w/o Limitations [employer](U [facility]) [employer](PT Physical Thpy-Out) OUTPATIENT [id number] NIDIA DUMONT 08/26 Released w/o Limitations [employer](P T Physica l Thpy-Ou t) [employer](PT Physical Thpy-Out) OUTPATIENT [id number] NIDIA DUMONT 09/02 Released w/o Limitations [employer](P T Physica l Thpy-Ou t) [employer](Fam [facility]) OUTPATIENT [id number] back pain ACE GARCIA 09/24 Released with Work/Duty Limitations [employer](F [facility]) [employer](PT Physical Thpy-Out) OUTPATIENT [id number] Low Back Pain JAMIE RAND 09/24 Released w/o Limitations [employer](P T Physica l Thpy-Ou t) [employer](PT Physical Thpy-Out) OUTPATIENT [id number] f/u LIBERTY HAYNES 10/02 Released w/o Limitations [employer](P T Physica l Thpy-Ou t) [employer]([facility] ent Care Clinic) TELE CONSULT [id number] Notes Entered by: True ALEXANDRA 08 Oct 2016 0715 ------- ------- ------- ------- -- 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 Would like some medicat ion. HEATHER CHINCHILLA 10/08 [employer](U ent Care Clinic) [employer]([facility] ent Care Clinic) OUTPATIENT [id number] please review and close TAPAN PULIDO 10/09 Released w/o Limitations [employer](U ent [facility]) [employer](PT Physical Thpy-Out) OUTPATIENT [id number] f/u [place] URBINA 10/09 Released w/o Limitations [employer](P T Physica l Thpy-Ou t) [employer](PT Physical Thpy-Out) OUTPATIENT [id number] dry EFREN Turcios 10/24 Released w/o Limitations [employer](P T Physica l Thpy-Ou t) [employer](PT Physical Thpy-Out) OUTPATIENT [id number] f/u EFREN BUNN 11/14 Released w/o Limitations [employer](P T Physica l Thpy-Ou t) [employer](PT Physical Thpy-Out) OUTPATIENT [id number] f/u EFREN BUNN 11/28 Released w/o Limitations [employer](P T Physica l Thpy-Ou t) [employer](PT Physical Thpy-Out) OUTPATIENT [id number] [facility] [place] NERI 11/29 Released w/o Limitations [employer](P T Physica l Thpy-Ou t) [employer]([facility] ent Care Clinic) OUTPATIENT [id number] acid reflux HEATHER CHINCHILLA 12/04 Released w/o Limitations [employer](U [facility] Care [facility]) [employer](Aud iology) OUTPATIENT [id number] Tinnitu mateo constantino TAYLOR N 12/19 Released w/o Limitations [employer](A udiolog y) [employer](PT Physical Thpy-Out) OUTPATIENT [id number] f/u LIBERTY HAYNES 12/20 Released w/o Limitations [employer](P T Physica l Thpy-Ou t) [employer](Opt ometry Clinic) OUTPATIENT [id number] CLAUDE ANEESH TRANChris 12/26 Released w/o Limitations [employer](O ptometr y Clinic) [employer](Opt ometry Clinic) OUTPATIENT [id number] Notes Entered by: Peter PANDEY 06 Jan 2017 1416 ------- ------- ------- ------- -- SPECTAC LE FITTING SHEILA TIM 01/06 Released w/o Limitations [employer](O ptometr y Clinic) [employer](Aud iology) OUTPATIENT [id number] hearing aid fitting MARY PERDOMO 01/07 Released w/o Limitations [employer](A udiolog y) [employer](Yair rhinolary ngology/E NT) OUTPATIENT [id number] SNHL GENESIS ADHIKARI 01/15 Released w/o Limitations [employer](O torhino laryngo logy/EN T) [employer](PT Physical Thpy-Out) OUTPATIENT [id number] f/u EFREN BUNN 01/15 Released w/o Limitations [employer](P T Physica l Thpy-Ou t) [employer](Fam [facility]) OUTPATIENT [id number] Cough, congest ion, and sinus HEATHER Guallpa 01/31 Released w/o Limitations [employer](F [facility]) [employer]([facility] ent Care Clinic) OUTPATIENT [id number] CHAPIS Mason 02/10 Sick at Home/Quarter s [employer](U [facility]) [employer](Fli ght Medicine [facility] Clinic) OUTPATIENT [id number] SHPE II SHEILA GUNN 02/10 Released w/o Limitations [employer](F light Medicin e [facility]) [facility] Outpatient Encounter [id number] 03/19 [facility] OFFICE O/P NEW MOD 45 MIN [id number] [id number] Diagnos is: ICD-10- CM F43.10 Post-tr aumatic stress disorde r, unspeci fied LIBERTY GONZALEZ 04/04 [facility] Outpatient Encounter [id number] 04/04 [facility] Outpatient Encounter [id number] [id number] 04/10 [facility] HEARING AID EXAM BOTH EARS [id number] [id number] Diagnos is: ICD-10- CM H90.3 Sensori neural hearing loss, [facility] SUSANNAH FAROOQ [facility] 05/07 [facility] TYMPANOMET RY & REFLEX THRESH [id number] [id number] Diagnos is: ICD-10- CM H90.3 Sensori neural hearing loss, mateo larsen SUSANNAH [facility]ICK [facility] J 05/07 [facility] PRO PHONE CALL 11-20 MIN [id number] [id number] Diagnos is: ICD-10- CM F10.29 Alcohol depende nce with unspeci fied alcohol -induce d disorde r SONI SU 05/25 [facility] Outpatient Encounter [id number] SONI SU 05/25 [facility] Outpatient Encounter [id number] [id number] 06/01 [facility] ALCOHOL AND/OR DRUG ASSESS [id number] [id number] Diagnos is: ICD-10- CM F10.10 Alcohol abuse, uncompl icated RASHEL BUTLER TERRENCE 06/09 [facility] Outpatient Encounter [id number] RASHEL BUTLER TERRENCE 06/09 [facility] Outpatient Encounter [id number] [id number] RASHEL BUTLER TERRENCE 06/09 [facility] Outpatient Encounter [id number] [id number] 06/10 [facility] PRO PHONE CALL 11-20 MIN [id number] [id number] Diagnos is: ICD-10- CM F10.90 Alcohol use, unspeci fied, uncompl icated GEORGESALESHASONI 06/10 [facility] Outpatient Encounter [id number] [id number] 06/11 [facility] ALCOHOL AND/OR DRUG SERVICES [id number] [id number] Diagnos is: ICD-10- CM F43.10 Post-tr aumatic stress disorde r, unspeci fied NIEVES GAYTAN 06/17 [facility] Outpatient Encounter [id number] 06/17 [facility] ALCOHOL AND/OR DRUG SERVICES [id number] [id number] Diagnos is: ICD-10- CM F10.10 Alcohol abuse, uncompl icated NIEVES GAYTAN MINGO Peter 06/18 [facility] ALCOHOL AND/OR DRUG SERVICES [id number] [id number] Diagnos is: ICD-10- CM F10.99 Alcohol use, unsp with unspeci fied alcohol -induce d disorde r GERANOLBERTO FIELDDorcas MINGO Peter 06/23 [facility] ALCOHOL AND/OR DRUG SERVICES [id number] [id number] Diagnos is: ICD-10- CM F10.99 Alcohol use, unsp with unspeci fied alcohol -induce d disorde r LUKASNOLBERTODorcas ROGERSCELIA Green 06/24 [facility] ALCOHOL AND/OR DRUG SERVICES [id number] [id number] Diagnos is: ICD-10- CM Z77.29 Contact with and exposur e to other ypsilantio us substan dung GIRBANKATHRYNFernanda Grant 06/25 [facility] ALCOHOL AND/OR DRUG SERVICES [id number] [id number] Diagnos is: ICD-10- CM F10.99 Alcohol use, unsp with unspeci fied alcohol -induce d disorde SONI An 06/26 [facility] ALCOHOL AND/OR DRUG SERVICES [id number] [id number] Diagnos is: ICD-10- CM F10.10 Alcohol abuse, uncompl icated LUKE,MO TERRENCE 06/29 [facility] ALCOHOL AND/OR DRUG SERVICES [id number] [id number] Diagnos is: ICD-10- CM F10.99 Alcohol use, unsp with unspeci fied alcohol -induce d disorde r LUKASNOLBERTODorcas MINGO Peter 07/01 [facility] AND[facility]OR DRUG SERVICES 59873-2.65 [id number] Diagnos is: ICD-10- CM F10.99 Alcohol use, unsp with unspeci fied alcohol -induce d disorde SONI An 07/03 [facility] 52061-6.65 [phone] Diagnos is: ICD-10- CM F10.10 Alcohol abuse, uncompl icated RASHEL BUTLER TERRENCE 07/06 [facility] 73402-4.65 [id number] 256 Diagnos is: ICD-10- CM F10.99 Alcohol use, unsp with unspeci fied alcohol -induce d disorde NIEVES Arguelles 07/08 [facility] 67190-8.65 [id number] 139 Diagnos is: ICD-10- CM Z77.29 Contact with and exposur e to other hazardo us substan dung LAND,KATHRYN GRECIA P 07/09 [facility] 01359-7.65 [phone] Diagnos is: ICD-10- CM F10.20 Alcohol depende nce, uncompl icated YADIDARYA E 07/13 [facility] CONFORMITY EVALUATION 32327-3.65 [id number] Diagnos is: ICD-10- CM H90.3 Sensori neural hearing loss, bilater al ROBBDEANNA Garcia A 07/13 [facility] AND/OR DRUG SERVICES 38026-4.65 [id number] 909 Diagnos is: ICD-10- CM F10.99 Alcohol use, unsp with unspeci fied alcohol -induce d disorde NIEVES Arguelles 07/15 [facility] 63993-1.65 [phone] Diagnos is: ICD-10- CM Z77.29 Contact with and exposur e to other hazardo us substan dung LAND,KATHRYN GRECIA P 07/16 [facility]CO[facility]OL AND/OR DRUG SERVICES 44594-5.65 [id number] Diagnos is: ICD-10- CM F10.10 Alcohol abuse, uncompl icated RASHEL BUTLER TERRENCE 07/20 [facility] ALCOHOL AND/OR DRUG SERVICES 83033-8.65 [id number] 663 Diagnos is: ICD-10- CM Z77.29 Contact with and exposur e to other ypsilantio substan KATHRYN Mittal P 07/23 [facility] ALCOHOL AND/OR DRUG SERVICES 18878-0.65 [id number] Diagnos is: ICD-10- CM F10.10 Alcohol abuse, uncompl icated RASHEL BUTLER TERRENCE 07/27 [facility] PRO PHONE CALL 11-20 MIN 76909-3.65 [phone] Diagnos is: ICD-10- CM F10.29 Alcohol depende nce with unspeci fied alcohol -induce d disorde SONI An 07/27 [facility] 75072-5.65 [id number] 608 Diagnos is: ICD-10- CM F10.99 Alcohol use, unsp with unspeci fied alcohol -induce d disorde NIEVES Arguelles 07/28 [facility] 97948-7.65 [id number] Diagnos is: ICD-10- CM F10.99 Alcohol use, unsp with unspeci fied alcohol -induce d disorde NIEVES Arguelles 07/28 [facility] 87564-7.65 [phone] 335 Diagnos is: ICD-10- CM F10.99 Alcohol use, unsp with unspeci fied alcohol -induce d disorde r NIEVES GAYTAN Peter 07/29 [facility] 93041-1.65 [phone] Diagnos is: ICD-10- CM Z77.29 Contact with and exposur e to other hazardo us substan KATHRYN Mittal P 07/30 [facility] 05156-4.65 [id number] 840 Diagnos is: ICD-10- CM F10.90 Alcohol use, unspeci fied, uncompl icated SONI SU 07/31 [facility] PSYCHOTHER APY 24769-2.65 [id number] 682 Diagnos is: ICD-10- CM F10.20 Alcohol depende nce, uncompl icated SEVERADO,A NGELA 08/03 [facility] 67389-0.65 [phone] 914 Diagnos is: ICD-10- CM F10.99 Alcohol use, unsp with unspeci fied alcohol -induce d disorde r SONI SU 08/03 [facility] 92121-7.65 [phone] 975 Diagnos is: ICD-10- CM F10.90 Alcohol use, unspeci fied, uncompl icated KUEHLEM-DO ROGHAZI,AN LUZ 08/03 [facility] PRO PHONE CALL 11-20 MIN 22433-3.65 [phone] Diagnos is: ICD-10- CM F10.29 Alcohol depende nce with unspeci fied alcohol -induce d disorde r SONI SU 08/03 [facility] 72533-4.65 [phone] Diagnos is: ICD-10- CM F10.90 Alcohol use, unspeci fied, uncompl icated MATEO QUINONES 08/04 [facility] 30833-9 [phone].[phone] Diagnos is: ICD-10- CM F10.20 Alcohol depende nce, uncompl icated SANJAY DORANTES A 08/04 [facility] AMBULATORY CARE COORDINATOR SALES [employer] 78680-1 [phone] Diagnos is: ICD-10- CM 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 RAMIREZ PAZ 08/04 [facility]OL AND/OR DRUG SERVICES 67807-7 [phone] Diagnos is: ICD-10- CM F10.90 Alcohol use, unspeci fied, uncompl icated NIEVES GAYTAN 08/04 [facility] 33062-8 [phone] Diagnos is: ICD-10- CM F10.90 Alcohol use, unspeci fied, uncompl icated NIEVES GAYTAN ROGERSCELIA Peter 08/05 [facility] 88750-7 [phone] Diagnos is: ICD-10- CM F10.99 Alcohol use, unsp with unspeci fied alcohol -induce d disorde r ORTBALS,CR ISTA 08/06 [facility] [phone] Diagnos is: ICD-10- CM F10.90 Alcohol use, unspeci fied, uncompl icated RASHEL BUTLER TERRENCE 08/06 [facility] [phone].[phone] Diagnos is: ICD-10- CM F10.90 Alcohol use, unspeci fied, uncompl icated COOK,SONI 08/06 [facility] 06238-4.65 [phone].[id number] 368 Diagnos is: ICD-10- CM F10.90 Alcohol use, unspeci fied, uncompl icated KATHRYN LEARY P 08/06 [facility] 35335-8.65 [phone].[phone] Diagnos is: ICD-10- CM F10.90 Alcohol use, unspeci fied, uncompl icated COOK,SONI 08/07 [facility] PSYCHOTHER [facility]Y 90655-6.65 [phone].[phone] Diagnos is: ICD-10- CM F10.90 Alcohol use, unspeci fied, uncompl icated BACKMATEO COUGHLIN M 08/11 [facility] IVNTJ GRP 59323-8.65 [phone].[phone] Diagnos is: ICD-10- CM F10.90 Alcohol use, unspeci fied, uncompl icated CHANTAL VARGAS 08/11 [facility] PSYCHOTHER APY 43388-8.65 [phone] Diagnos is: ICD-10- CM 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, unspeci fied ALICE MORA 08/11 [facility] PSYCHOTHER APY 57369-0.65 [phone].[id number] 849 Diagnos is: ICD-10- CM F10.90 Alcohol use, unspeci fied, uncompl icated ORTBALS,CR ISTA 08/13 [facility] 05853-5.65 [phone].[id number] 960 Diagnos is: ICD-10- CM F10.90 Alcohol use, unspeci fied, uncompl icated COOK,SONI 08/13 [facility] 52054-3.65 [id number] SONI SU 08/14 [facility] SVC, PER 15 MIN 84472-3.65 [id number] Diagnos is: ICD-10- CM Z56.0 Unemplo yment, unspeci REBEKAH Turner 08/17 [facility] Outpatient Encounter 98205-8.65 [id number] LIBERTY GONZALEZ 10/02 [facility] Outpatient Encounter 09206-8.65 [id number] 04/06 [facility] HEARING AID CHECK [place] 07034-3.65 [id number] Diagnos is: ICD-10- CM Z46.1 Encount er for fitting and adjustm ent of hearing aid PETE HUNT 04/22 [facility] Outpatient Encounter 90441-5.65 [id number] 04/27 [facility] Outpatient Encounter 87208-4.65 [id number] 05/06 [facility] Outpatient Encounter 56285-4.65 [id number] 08/31 [facility] Procedures Combined list of: 1) Procedures from Department of Veterans Affairs facilities going back up to thelast 18 months, not all VA non-surgical procedures are included; 2) All procedures from the Department of Defense facilities. Procedure Procedure Type Code Date Perfomer Comments Sourc e INDIVIDUAL PSYCHOTHERAPY, INSIGHT ORIENTED, BEHAVIOR MODIFYING AND/OR SUPPORTIVE, IN AN OFFICE OR OUTPATIENT FACILITY, APPROXIMATELY 20 TO 30 MINUTES [id number] WITH THE PATIENT [facility] GROUP PSYCHOTHERAPY (OTHER THAN OF A MULTIPLE-FAMILY GROUP) [facility] PSYCHIATRIC DIAGNOSTIC INTERVIEW EXAMINATION [facility] PURE TONE AUDIOMETRY (THRESHOLD); AIR ONLY [facility] BRIEF EMOTIONAL/BEHAVIORA L ASSESSMENT (EG, DEPRESSION INVENTORY, ATTENTION-DEFICIT/H YPERACTIVITY DISORDER [ADHD] SCALE), WITH SCORING AND DOCUMENTATION, PER STANDARDIZED INSTRUMENT [facility] THERAPEUTIC PROCEDURE, 1 OR MORE AREAS, EACH 15 MINUTES; THERAPEUTIC EXERCISES TO DEVELOP STRENGTH AND ENDURANCE, RANGE OF MOTION AND FLEXIBILITY [facility] PSYCHOTHERAPY, 30 MINUTES WITH PATIENT WHEN PERFORMED WITH AN EVALUATION AND MANAGEMENT SERVICE (LIST SEPARATELY IN ADDITION TO THE CODE FOR PRIMARY PROCEDURE) [facility] CONFORMITY EVALUATION [facility] FITTING OF SPECTACLES, EXCEPT FOR APHAKIA; MONOFOCAL [facility] BRIEF EMOTIONAL/BEHAVIORA L ASSESSMENT (EG, DEPRESSION INVENTORY, ATTENTION-DEFICIT/H YPERACTIVITY DISORDER [ADHD] SCALE), WITH SCORING AND DOCUMENTATION, PER STANDARDIZED INSTRUMENT [facility] FITTING OF SPECTACLES, EXCEPT FOR APHAKIA; MONOFOCAL [facility] FOOT, ARCH SUPPORT, REMOVABLE, PREMOLDED, LONGITUDINAL, EACH [facility] HEARING SERVICE, MISCELLANEOUS [facility] BRIEF EMOTIONAL/BEHAVIORA L ASSESSMENT (EG, DEPRESSION INVENTORY, ATTENTION-DEFICIT/H YPERACTIVITY DISORDER [ADHD] SCALE), WITH SCORING AND DOCUMENTATION, PER STANDARDIZED INSTRUMENT [facility] THERAPEUTIC PROCEDURE, 1 OR MORE AREAS, EACH 15 MINUTES; THERAPEUTIC EXERCISES TO DEVELOP STRENGTH AND ENDURANCE, RANGE OF MOTION AND FLEXIBILITY [facility] SELF-CARE/HOME MANAGMENT TRAIN (EG,ACT OF DAILY LIVING (ADL) &COMPENSAT TRAIN,MEAL PREPARATION,SAFETY PROCS,AND INSTRUCT IN USE OF ASST TECHNOLOGY DEV/ADPT EQUIP) DIR ONE-ON-ONE CONT,EA 15 MINUTES [facility] THERAPEUTIC PROCEDURE, 1 OR MORE AREAS, EACH 15 MINUTES; THERAPEUTIC EXERCISES TO DEVELOP STRENGTH AND ENDURANCE, RANGE OF MOTION AND FLEXIBILITY [facility] BRIEF EMOTIONAL/BEHAVIORA L ASSESSMENT (EG, DEPRESSION INVENTORY, ATTENTION-DEFICIT/H YPERACTIVITY DISORDER [ADHD] SCALE), WITH SCORING AND DOCUMENTATION, PER STANDARDIZED INSTRUMENT [facility] BRIEF EMOTIONAL/BEHAVIORA L ASSESSMENT (EG, DEPRESSION INVENTORY, ATTENTION-DEFICIT/H YPERACTIVITY DISORDER [ADHD] SCALE), WITH SCORING AND DOCUMENTATION, PER STANDARDIZED INSTRUMENT [facility] PHYSICAL OR MANIPULATIVE THERAPY PERFORMED FOR MAINTENANCE RATHER THAN MORAVIAN [facility] BRIEF EMOTIONAL/BEHAVIORA L ASSESSMENT (EG, DEPRESSION INVENTORY, ATTENTION-DEFICIT/H YPERACTIVITY DISORDER [ADHD] SCALE), WITH SCORING AND DOCUMENTATION, PER STANDARDIZED INSTRUMENT [facility] RE-EVAL,PHYSICAL THERAPY EST PLAN OF CARE,REQ:EXAM,REV,H X & USE,STAND TESTS &NELIA REQ;REV PLAN OF CARE USING STAND PAT ASSESS INSTR &/NELIA ASSESS FUNC OUTCOME TYP,20 MIN SPENT [id number]-WS-[id number] W PAT&/FAM [facility] BRIEF EMOTIONAL/BEHAVIORA L ASSESSMENT (EG, DEPRESSION INVENTORY, ATTENTION-DEFICIT/H YPERACTIVITY DISORDER [ADHD] SCALE), WITH SCORING AND DOCUMENTATION, PER STANDARDIZED INSTRUMENT [facility] PHYSICAL OR MANIPULATIVE THERAPY PERFORMED FOR MAINTENANCE RATHER THAN MORAVIAN [facility] MANUAL THERAPY TECHNIQUES (EG, MOBILIZATION/ MANIPULATION, MANUAL LYMPHATIC DRAINAGE, MANUAL TRACTION), 1 OR MORE REGIONS, EACH 15 MINUTES [facility] THERAPEUTIC PROCEDURE, 1 OR MORE AREAS, EACH 15 MINUTES; THERAPEUTIC EXERCISES TO DEVELOP STRENGTH AND ENDURANCE, RANGE OF MOTION AND FLEXIBILITY [facility] BRIEF EMOTIONAL/BEHAVIORA L ASSESSMENT (EG, DEPRESSION INVENTORY, ATTENTION-DEFICIT/H YPERACTIVITY DISORDER [ADHD] SCALE), WITH SCORING AND DOCUMENTATION, PER STANDARDIZED INSTRUMENT [facility] THERAPEUTIC PROCEDURE, 1 OR MORE AREAS, EACH 15 MINUTES; THERAPEUTIC EXERCISES TO DEVELOP STRENGTH AND ENDURANCE, RANGE OF MOTION AND FLEXIBILITY [facility] BRIEF EMOTIONAL/BEHAVIORA L ASSESSMENT (EG, DEPRESSION INVENTORY, ATTENTION-DEFICIT/H YPERACTIVITY DISORDER [ADHD] SCALE), WITH SCORING AND DOCUMENTATION, PER STANDARDIZED INSTRUMENT [facility] OSTEOPATHIC MANIPULATIVE TREATMENT (OMT); 1-2 BODY REGIONS INVOLVED [facility] BRIEF EMOTIONAL/BEHAVIORA L ASSESSMENT (EG, DEPRESSION INVENTORY, ATTENTION-DEFICIT/H YPERACTIVITY DISORDER [ADHD] SCALE), WITH SCORING AND DOCUMENTATION, PER STANDARDIZED INSTRUMENT [facility] BRIEF EMOTIONAL/BEHAVIORA L ASSESSMENT (EG, DEPRESSION INVENTORY, ATTENTION-DEFICIT/H YPERACTIVITY DISORDER [ADHD] SCALE), WITH SCORING AND DOCUMENTATION, PER STANDARDIZED INSTRUMENT [facility] PSYCHOTHERAPY, 30 MINUTES WITH PATIENT WHEN PERFORMED WITH AN EVALUATION AND MANAGEMENT SERVICE (LIST SEPARATELY IN ADDITION TO THE CODE FOR PRIMARY PROCEDURE) [facility] APPLICATION OF A MODALITY TO 1 OR MORE AREAS; TRACTION, MECHANICAL [facility] BRIEF EMOTIONAL/BEHAVIORA L ASSESSMENT (EG, DEPRESSION INVENTORY, ATTENTION-DEFICIT/H YPERACTIVITY DISORDER [ADHD] SCALE), WITH SCORING AND DOCUMENTATION, PER STANDARDIZED INSTRUMENT [facility] APPLICATION OF A MODALITY TO 1 OR MORE AREAS; TRACTION, MECHANICAL [facility] BRIEF EMOTIONAL/BEHAVIORA L ASSESSMENT (EG, DEPRESSION INVENTORY, ATTENTION-DEFICIT/H YPERACTIVITY DISORDER [ADHD] SCALE), WITH SCORING AND DOCUMENTATION, PER STANDARDIZED INSTRUMENT [facility] INTERPRETATION OR EXPLANATION OF RESULTS OF PSYCHIATRIC, OTH MEDICAL EXAMS/PROCEDURES, OR OTH ACCUMULATED DATA TO FAMILY OR OTH RESPONSIBLE PERSONS,OR ADVISING THEM HOW TO ASSIST PATIENT [facility] BRIEF EMOTIONAL/BEHAVIORA L ASSESSMENT (EG, DEPRESSION INVENTORY, ATTENTION-DEFICIT/H YPERACTIVITY DISORDER [ADHD] SCALE), WITH SCORING AND DOCUMENTATION, PER STANDARDIZED INSTRUMENT [facility] BRIEF EMOTIONAL/BEHAVIORA L ASSESSMENT (EG, DEPRESSION INVENTORY, ATTENTION-DEFICIT/H YPERACTIVITY DISORDER [ADHD] SCALE), WITH SCORING AND DOCUMENTATION, PER STANDARDIZED INSTRUMENT [facility] PSYCHOTHERAPY, 30 MINUTES WITH PATIENT WHEN PERFORMED WITH AN EVALUATION AND MANAGEMENT SERVICE (LIST SEPARATELY IN ADDITION TO THE CODE FOR PRIMARY PROCEDURE) [facility] PSYCHIATRIC DIAGNOSTIC EVALUATION [facility] PSYCHOTHERAPY, 45 MINUTES WITH PATIENT [facility] BRIEF EMOTIONAL/BEHAVIORA L ASSESSMENT (EG, DEPRESSION INVENTORY, ATTENTION-DEFICIT/H YPERACTIVITY DISORDER [ADHD] SCALE), WITH SCORING AND DOCUMENTATION, PER STANDARDIZED INSTRUMENT [facility] BRIEF EMOTIONAL/BEHAVIORA L ASSESSMENT (EG, DEPRESSION INVENTORY, ATTENTION-DEFICIT/H YPERACTIVITY DISORDER [ADHD] SCALE), WITH SCORING AND DOCUMENTATION, PER STANDARDIZED INSTRUMENT [facility] CURRENT TOBACCO SMOKER (CAD, CAP, COPD, PV) (DM) [facility] PSYCHOTHERAPY, 30 MINUTES WITH PATIENT WHEN PERFORMED WITH AN EVALUATION AND MANAGEMENT SERVICE (LIST SEPARATELY IN ADDITION TO THE CODE FOR PRIMARY PROCEDURE) [facility] BRIEF EMOTIONAL/BEHAVIORA L ASSESSMENT (EG, DEPRESSION INVENTORY, ATTENTION-DEFICIT/H YPERACTIVITY DISORDER [ADHD] SCALE), WITH SCORING AND DOCUMENTATION, PER STANDARDIZED INSTRUMENT [facility] MANUAL THERAPY TECHNIQUES (EG, MOBILIZATION/ MANIPULATION, MANUAL LYMPHATIC DRAINAGE, MANUAL TRACTION), 1 OR MORE REGIONS, EACH 15 MINUTES [facility] PREPARATION OF REPORT OF PATIENT'S PSYCHIATRIC STATUS, HISTORY, TREATMENT, OR PROGRESS (OTHER THAN FOR LEGAL OR CONSULTATIVE PURPOSES) FOR OTHER INDIVIDUALS, AGENCIES, OR INSURANCE CARRIERS [facility] MANUAL THERAPY TECHNIQUES (EG, MOBILIZATION/ MANIPULATION, MANUAL LYMPHATIC DRAINAGE, MANUAL TRACTION), 1 OR MORE REGIONS, EACH 15 MINUTES [facility] INJECTION, DIPHENHYDRAMINE HCL, UP TO 50 MG [facility] BRIEF EMOTIONAL/BEHAVIORA L ASSESSMENT (EG, DEPRESSION INVENTORY, ATTENTION-DEFICIT/H YPERACTIVITY DISORDER [ADHD] SCALE), WITH SCORING AND DOCUMENTATION, PER STANDARDIZED INSTRUMENT [facility] BRIEF EMOTIONAL/BEHAVIORA L ASSESSMENT (EG, DEPRESSION INVENTORY, ATTENTION-DEFICIT/H YPERACTIVITY DISORDER [ADHD] SCALE), WITH SCORING AND DOCUMENTATION, PER STANDARDIZED INSTRUMENT [facility] MANUAL THERAPY TECHNIQUES (EG, MOBILIZATION/ MANIPULATION, MANUAL LYMPHATIC DRAINAGE, MANUAL TRACTION), 1 OR MORE REGIONS, EACH 15 MINUTES [facility] BRIEF EMOTIONAL/BEHAVIORA L ASSESSMENT (EG, DEPRESSION INVENTORY, ATTENTION-DEFICIT/H YPERACTIVITY DISORDER [ADHD] SCALE), WITH SCORING AND DOCUMENTATION, PER STANDARDIZED INSTRUMENT [facility] PSYCHOTHERAPY, 30 MINUTES WITH PATIENT WHEN PERFORMED WITH AN EVALUATION AND MANAGEMENT SERVICE (LIST SEPARATELY IN ADDITION TO THE CODE FOR PRIMARY PROCEDURE) [facility] BRIEF EMOTIONAL/BEHAVIORA L ASSESSMENT (EG, DEPRESSION INVENTORY, ATTENTION-DEFICIT/H YPERACTIVITY DISORDER [ADHD] SCALE), WITH SCORING AND DOCUMENTATION, PER STANDARDIZED INSTRUMENT [facility] BRIEF EMOTIONAL/BEHAVIORA L ASSESSMENT (EG, DEPRESSION INVENTORY, ATTENTION-DEFICIT/H YPERACTIVITY DISORDER [ADHD] SCALE), WITH SCORING AND DOCUMENTATION, PER STANDARDIZED INSTRUMENT [facility] MANUAL THERAPY TECHNIQUES (EG, MOBILIZATION/ MANIPULATION, MANUAL LYMPHATIC DRAINAGE, MANUAL TRACTION), 1 OR MORE REGIONS, EACH 15 MINUTES [facility] BRIEF EMOTIONAL/BEHAVIORA L ASSESSMENT (EG, DEPRESSION INVENTORY, ATTENTION-DEFICIT/H YPERACTIVITY DISORDER [ADHD] SCALE), WITH SCORING AND DOCUMENTATION, PER STANDARDIZED INSTRUMENT [facility] BRIEF EMOTIONAL/BEHAVIORA L ASSESSMENT (EG, DEPRESSION INVENTORY, ATTENTION-DEFICIT/H YPERACTIVITY DISORDER [ADHD] SCALE), WITH SCORING AND DOCUMENTATION, PER STANDARDIZED INSTRUMENT [facility] APPLICATION OF A MODALITY TO 1 OR MORE AREAS; HOT OR COLD PACKS [facility] BRIEF EMOTIONAL/BEHAVIORA L ASSESSMENT (EG, DEPRESSION INVENTORY, ATTENTION-DEFICIT/H YPERACTIVITY DISORDER [ADHD] SCALE), WITH SCORING AND DOCUMENTATION, PER STANDARDIZED INSTRUMENT [facility] THERAPEUTIC PROCEDURE, 1 OR MORE AREAS, EACH 15 MINUTES; THERAPEUTIC EXERCISES TO DEVELOP STRENGTH AND ENDURANCE, RANGE OF MOTION AND FLEXIBILITY [facility] THERAPEUTIC PROCEDURE, 1 OR MORE AREAS, EACH 15 MINUTES; THERAPEUTIC EXERCISES TO DEVELOP STRENGTH AND ENDURANCE, RANGE OF MOTION AND FLEXIBILITY [facility] APPLICATION OF FINGER SPLINT; STATIC [facility] THERAPEUTIC PROCEDURE, 1 OR MORE AREAS, EACH 15 MINUTES; THERAPEUTIC EXERCISES TO DEVELOP STRENGTH AND ENDURANCE, RANGE OF MOTION AND FLEXIBILITY [facility] APPLICATION OF A MODALITY TO 1 OR MORE AREAS; ULTRASOUND, EACH 15 MINUTES [facility] THERAPEUTIC PROCEDURE, 1 OR MORE AREAS, EACH 15 MINUTES; THERAPEUTIC EXERCISES TO DEVELOP STRENGTH AND ENDURANCE, RANGE OF MOTION AND FLEXIBILITY [facility] MANUAL THERAPY TECHNIQUES (EG, MOBILIZATION/ MANIPULATION, MANUAL LYMPHATIC DRAINAGE, MANUAL TRACTION), 1 OR MORE REGIONS, EACH 15 MINUTES [facility] THERAPEUTIC PROCEDURE, 1 OR MORE AREAS, EACH 15 MINUTES; THERAPEUTIC EXERCISES TO DEVELOP STRENGTH AND ENDURANCE, RANGE OF MOTION AND FLEXIBILITY [facility] MANUAL THERAPY TECHNIQUES (EG, MOBILIZATION/ MANIPULATION, MANUAL LYMPHATIC DRAINAGE, MANUAL TRACTION), 1 OR MORE REGIONS, EACH 15 MINUTES [facility] POSTOPERATIVE FOLLOW-UP VISIT, NORMALLY INCLUDED IN THE SURGICAL PACKAGE, INDICATE THAT EVALUATION & MANAGEMENT SERVICE WAS PERFORMED DURING A POSTOPERATIVE PERIOD REASON RELATED ORIGINAL PROCEDURE [facility] OCCUPATIONAL THERAPY RE-EVALUATION [facility] APPLICATION OF A MODALITY TO 1 OR MORE AREAS; HOT OR COLD PACKS [facility] POSTOPERATIVE FOLLOW-UP VISIT, NORMALLY INCLUDED IN THE SURGICAL PACKAGE, INDICATE THAT EVALUATION & MANAGEMENT SERVICE WAS PERFORMED DURING A POSTOPERATIVE PERIOD REASON RELATED ORIGINAL PROCEDURE [facility] THERAPEUTIC PROCEDURE, 1 OR MORE AREAS, EACH 15 MINUTES; THERAPEUTIC EXERCISES TO DEVELOP STRENGTH AND ENDURANCE, RANGE OF MOTION AND FLEXIBILITY [facility] APPLICATION OF A MODALITY TO 1 OR MORE AREAS; HOT OR COLD PACKS [facility] APPLICATION OF A MODALITY TO 1 OR MORE AREAS; HOT OR COLD PACKS [facility] OCCUPATIONAL THERAPY RE-EVALUATION [facility] POSTOPERATIVE FOLLOW-UP VISIT, NORMALLY INCLUDED IN THE SURGICAL PACKAGE, INDICATE THAT EVALUATION & MANAGEMENT SERVICE WAS PERFORMED DURING A POSTOPERATIVE PERIOD REASON RELATED ORIGINAL PROCEDURE [facility] SELF-CARE/HOME MANAGMENT TRAIN (EG,ACT OF DAILY LIVING (ADL) &COMPENSAT TRAIN,MEAL PREPARATION,SAFETY PROCS,AND INSTRUCT IN USE OF ASST TECHNOLOGY DEV/ADPT EQUIP) DIR ONE-ON-ONE CONT,EA 15 MINUTES [facility] UNLISTED SPECIAL SERVICE, PROCEDURE OR REPORT [facility] INJECTION(S), ANESTHETIC AGENT(S) AND/OR STEROID; OTHER PERIPHERAL NERVE OR BRANCH [facility] APPLICATION OF FINGER SPLINT; DYNAMIC [facility] IMMUNIZATION ADMINISTRATION (INCLUDES PERCUTANEOUS, INTRADERMAL, SUBCUTANEOUS, OR INTRAMUSCULAR INJECTIONS); 1 VACCINE (SINGLE OR COMBINATION VACCINE/TOXOID) [facility] INJECTION, ONABOTULINUMTOXINA, 1 UNIT [facility] COLD OR HOT FLUID BOTTLE, ICE CAP OR COLLAR, HEAT AND/OR COLD WRAP, ANY TYPE [facility] THERAPEUTIC PROCEDURE, 1 OR MORE AREAS, EACH 15 MINUTES; THERAPEUTIC EXERCISES TO DEVELOP STRENGTH AND ENDURANCE, RANGE OF MOTION AND FLEXIBILITY [facility] THERAPEUTIC PROCEDURE, 1 OR MORE AREAS, EACH 15 MINUTES; THERAPEUTIC EXERCISES TO DEVELOP STRENGTH AND ENDURANCE, RANGE OF MOTION AND FLEXIBILITY [facility] THERAPEUTIC PROCEDURE, 1 OR MORE AREAS, EACH 15 MINUTES; THERAPEUTIC EXERCISES TO DEVELOP STRENGTH AND ENDURANCE, RANGE OF MOTION AND FLEXIBILITY [facility] THERAPEUTIC PROCEDURE, 1 OR MORE AREAS, EACH 15 MINUTES; THERAPEUTIC EXERCISES TO DEVELOP STRENGTH AND ENDURANCE, RANGE OF MOTION AND FLEXIBILITY 015 [facility] MANUAL THERAPY TECHNIQUES (EG, MOBILIZATION/ MANIPULATION, MANUAL LYMPHATIC DRAINAGE, MANUAL TRACTION), 1 OR MORE REGIONS, EACH 15 MINUTES 014 [facility] OPHTHALMOLOGICAL SERVICES: MEDICAL EXAMINATION AND EVALUATION WITH INITIATION OF DIAGNOSTIC AND TREATMENT PROGRAM; COMPREHENSIVE, NEW PATIENT, 1 OR MORE VISITS 014 [facility] MANUAL THERAPY TECHNIQUES (EG, MOBILIZATION/ MANIPULATION, MANUAL LYMPHATIC DRAINAGE, MANUAL TRACTION), 1 OR MORE REGIONS, EACH 15 MINUTES 013 [facility] PHYSICAL THERAPY EVALUATION 013 [facility] DETERMINATION OF REFRACTIVE STATE [facility] PHYSICAL THERAPY EVALUATION 012 [facility] Physical Medicine Physical Therapy Evaluation Physical Medicine Physical Therapy Evaluation [id number] AZAR GUZMAN [facility] Ophthalmological New Patient Start Comprehensive Care Ophthalmological New Patient Start Comprehensive Care [id number] LYNDA PHELPS [facility] Mobilization Soft Ti ue Mobilization Soft Tissue [id number] LIVIA DAWN [facility] Physical Therapy: ___ Se ion Segments, 15 Minutes Each Physical Therapy: ___ Session Segments, 15 Minutes Each [id number] LIVIA DAWN [facility] Physical Medicine Physical Therapy Re-Evaluation Physical Medicine Physical Therapy Re-Evaluation [id number] LIVIA DAWN [facility] Physical Medicine Physical Therapy Evaluation Physical Medicine Physical Therapy Evaluation 31670 013 SOULEYMANE CULVER [facility] Ophthalmological New Patient Start Comprehensive Care Ophthalmological New Patient Start Comprehensive Care 38305 013 CAROLYN HASSAN [facility] Determination Of Refractive State Determination Of Refractive State 35022 013 CAROLYN HASSAN [facility] Physical Therapy: ___ Se ion Segments, 15 Minutes Each Physical Therapy: ___ Session Segments, 15 Minutes Each 66468 012 FIDEL CRUZ [facility] Physical Medicine Physical Therapy Evaluation Physical Medicine Physical Therapy Evaluation 33800 012 FIDEL CRUZ [facility] Psychiatric Evaluation Comprehensive Examination Psychiatric Evaluation Comprehensive Examination [id number] [id number] YINA NAQVI [facility] Threshold Audiogram (Pure Tone) Threshold Audiogram (Pure Tone) 31296 017 SHEILA GUNN [facility] Physical Therapy: ___ Se ion Segments, 15 Minutes Each Physical Therapy: ___ Session Segments, 15 Minutes Each 58297 KHUSHI AVENDANO [facility] Physical Medicine Physical Therapy Re-Evaluation Physical Medicine Physical Therapy Re-Evaluation 94166 KHUSHI AVENDANO [facility] Psychiat Therapy Indiv Appr 20-30 Min W/ Med Eval Managemt Psychiat Therapy Indiv Appr 20-30 Min W/ Med Eval Managemt 81509 KANGNICANORCRISTINA NAKIA Biswas [facility] Conformity evaluation MARY PERDOMO Fitting/orientation /checking of hearing aid MARY PERDOMO Patient Counseling Medical Management Individual Patient Patient Counseling Medical Management Individual Patient [address] Supervised Ordering / Handling / Fitting Patient Devices Supervised Ordering / Handling / Fitting Patient Devices 29950 MARY PERDOMO Spectacles Services Fitting Monofocals (Not For Aphakia) Spectacles Services Fitting Monofocals (Not For Aphakia) 94038 017 SHEILA TIM [facility] Spectacles Services Fitting Monofocals (Not For Aphakia) Spectacles Services Fitting Monofocals (Not For Aphakia) [address] [facility] Ophthalmological New Patient Start Comprehensive Care Ophthalmological New Patient Start [facility] [address] [facility] Determination Of Refractive State Determination Of [place] [address] [facility] [place], arch support, removable, premolded, longitudinal, each LIBERTY BALL [facility] Physical Therapy: ___ Se ion Segments, 15 Minutes Each Physical Therapy: ___ Session Segments, 15 Minutes Each 45572 LIBERTY BALL Hearing service, miscellaneous MARY PERDOMO Fitting/orientation /checking of hearing aid MARY PERDOMO Hearing Aid Examination and Selection Hearing Aid Examination and Selection 86408 MARY PERDOMO Evoked Otoacoustic Luiza ions Evoked Otoacoustic Emissions 54074 MARY PERDOMO Acoustic Immittance Test Acoustic Immittance Test 70148 MARY PERDOMO Comprehensive Audiometry Comprehensive Audiometry 96570 MARY PERDOMO Psychiat Therapy Indiv Appr 20-30 Min W/ Med Eval Managemt Psychiat Therapy Indiv Appr 20-30 Min W/ Med Eval Managemt 03118 NAKIA JUDGE Foot, arch support, removable, premolded, longitudinal, each KHUSHI AVENDANO Physical Therapy: ___ Se ion Segments, 15 Minutes Each Physical Therapy: ___ Session Segments, 15 Minutes Each 08935 017 KHUSHI AVENDANO Phys Therapy Education Self Care Training - Per 15 Minutes Phys Therapy Education Self Care Training - Per 15 Minutes 99481 017 EFREN BUNN Physical Medicine Physical Therapy Re-Evaluation Physical Medicine Physical Therapy Re-Evaluation 08814 017 EFREN BUNN Exercises A isted Exercises For ROM Exercises Assisted Exercises For ROM 08557 017 EFREN BUNN Physical Medicine Physical Therapy Re-Evaluation Physical Medicine Physical Therapy Re-Evaluation 39557 017 EFREN BUNN Psychiat Therapy Indiv Appr 20-30 Min W/ Med Eval Managemt Psychiat Therapy Indiv Appr 20-30 Min W/ Med Eval Managemt 77124 017 NAKIA JUDGE Physical or manipulative therapy performed for maintenance rather than lutheran 017 EFREN BUNN Physical Therapy Mobilization Joint Physical Therapy Mobilization Joint 14674 017 EFREN BUNN Osteopathic Manip Treatment (OMT) 1-2 Body Regions Involved Osteopathic Manip Treatment (OMT) 1-2 Body Regions Involved 61019 017 EFREN BUNN Physical Medicine Physical Therapy Re-Evaluation Physical Medicine Physical Therapy Re-Evaluation 65758 017 EFREN BUNN Psychiat Therapy Indiv Appr 20-30 Min W/ Med Eval Managemt Psychiat Therapy Indiv Appr 20-30 Min W/ Med Eval Managemt 77749 017 NAKIA JUDGE [facility] Physical Medicine Physical Therapy Re-Evaluation Physical Medicine Physical Therapy Re-Evaluation 93872 017 GEORGIA NERI [facility] Physical or manipulative therapy performed for maintenance rather than lutheran 017 GEORGIA NERI [facility] Physical Therapy Mobilization Joint Physical Therapy Mobilization Joint 53474 017 GEORG[place] NERI [facility] Social Work Individual Outpatient Counseling 45-50 Minutes Social Work Individual Outpatient Counseling 45-50 Minutes 67625 017 ELOISA GARCIA [facility] Physical or manipulative therapy performed for maintenance rather than lutheran 017 LIBERTY BALL [facility] Physical Therapy: ___ Se ion Segments, 15 Minutes Each Physical Therapy: ___ Session Segments, 15 Minutes Each 39866 017 LIBERTY BALL [facility] Physical Therapy Mobilization Joint Physical Therapy Mobilization Joint 12873 017 LIBERTY BALL [facility] Physical Medicine Physical Therapy Re-Evaluation Physical Medicine Physical Therapy Re-Evaluation 80180 017 LIBERTY BALL [facility] Physical Therapy Mobilization Joint Physical Therapy Mobilization Joint 29125 017 PANTERA DEL ROSARIO [facility] Physical Therapy: ___ Se ion Segments, 15 Minutes Each Physical Therapy: ___ Session Segments, 15 Minutes Each 77257 017 NIDIA DUMONT [facility] Psychiat Therapy Indiv Appr 20-30 Min W/ Med Eval Managemt Psychiat Therapy Indiv Appr 20-30 Min W/ Med Eval Managemt 72797 017 NAKIA JUDGE [facility] Physical Therapy: ___ Se ion Segments, 15 Minutes Each Physical Therapy: ___ Session Segments, 15 Minutes Each 19124 017 NIDIA DUMONT [facility] Osteopathic Manip Treatment (OMT) 1-2 Body Regions Involved Osteopathic Manip Treatment (OMT) 1-2 Body Regions Involved 57854 017 ISAAC MARS [facility] Physical Therapy: ___ Se ion Segments, 15 Minutes Each Physical Therapy: ___ Session Segments, 15 Minutes Each 76823 017 ISAAC MARS [facility] Psychiat Therapy Indiv Appr 20-30 Min W/ Med Eval Managemt Psychiat Therapy Indiv Appr 20-30 Min W/ Med Eval Managemt 24136 017 NAKIA JUDGE Psychiat Therapy Indiv Appr 20-30 Min W/ Med Eval Managemt Psychiat Therapy Indiv Appr 20-30 Min W/ Med Eval Managemt 96498 017 NAKIA JUDGE [facility] Modalities Traction Modalities Traction 13570 0 017 JEFRY ALEXANDRA [facility] Modalities Heat Hot Packs Modalities Heat Hot Packs 70215 017 JEFRY ALEXANDRA [facility] Chiropractic Manip Treatmt (CMT) Spinal Three To Four Region Chiropractic Manip Treatmt (CMT) Spinal Three To Four Region 12288 017 JEFRY ALEXANDRA Modalities Traction Modalities Traction 28151 0 017 JEFRY ALEXANDRA Modalities Heat Hot Packs Modalities Heat Hot Packs 41727 017 JEFRY ALEXANDRA Chiropractic Manip Treatmt (CMT) Spinal Three To Four Region Chiropractic Manip Treatmt (CMT) Spinal Three To Four Region 91547 017 JEFRY ALEXANDRA Psychiatric Evaluation Comprehensive Examination Psychiatric Evaluation Comprehensive Examination 69771 017 OPAL SALAZAR [facility] Psychiat Therapy Indiv Appr 20-30 Min W/ Med Eval Managemt Psychiat Therapy Indiv Appr 20-30 Min W/ Med Eval Managemt 73019 017 NAKIA JUDGE [facility] Psychiat Ther Indiv Interactive Approximately 45-50 Minutes Psychiat Ther Indiv Interactive Approximately 45-50 Minutes 31656 017 OPAL SALAZAR Psychiat Ther Indiv Interactive Approximately 45-50 Minutes Psychiat Ther Indiv Interactive Approximately 45-50 Minutes 50797 017 OPAL SALAZAR [facility] current smoker current smoker 1034F 017 OPAL SALAZAR [facility] Psychiatric Evaluation Psychiatric Evaluation 56368 017 OPAL SALAZAR [facility] Psychiat Therapy Indiv Appr 20-30 Min W/ Med Eval Managemt Psychiat Therapy Indiv Appr 20-30 Min W/ Med Eval Managemt 13513 017 NAKIA JUDGE [facility] Physical Therapy Mobilization Joint Physical Therapy Mobilization Joint 50255 017 BRETT BROUSSARD [facility] Physical Therapy: ___ Se ion Segments, 15 Minutes Each Physical Therapy: ___ Session Segments, 15 Minutes Each 06536 017 BRETT BROUSSARD [facility] Psychiatric Therapy Preparation of Psychiatric Status Report Psychiatric Therapy Preparation of Psychiatric Status Report 78372 017 JOSE DIOP 120 MINUTES OF EVALUATION RESULTS INTERPRETATION AND REPORT PREPARATION. [facility] Physical Therapy Mobilization Joint Physical Therapy Mobilization Joint 18041 017 BRETT BROUSSARD [facility] Physical Therapy: ___ Se ion Segments, 15 Minutes Each Physical Therapy: ___ Session Segments, 15 Minutes Each 32557 017 BRETT BROUSSARD [facility] Psychologic Testing And Report Administered By Computer Psychologic Testing And Report Administered By Computer 70927 017 JOSE DIOP [facility] Physical Therapy Mobilization Joint Physical Therapy Mobilization Joint 10141 017 CAMORATTO, DEBORAH A [facility] Physical Therapy: ___ Se ion Segments, 15 Minutes Each Physical Therapy: ___ Session Segments, 15 Minutes Each 80884 017 CAMORATTO, DEBORAH A [facility] Psychiat Therapy Indiv Appr 20-30 Min W/ Med Eval Managemt Psychiat Therapy Indiv Appr 20-30 Min W/ Med Eval Managemt 36578 017 NAKIA JUDGE [facility] Mobilization Soft Ti ue Mobilization Soft Tissue 72634 017 ROGER LE [facility] Physical Medicine Physical Therapy Evaluation Physical Medicine Physical Therapy Evaluation 45114 017 ROGER LE [facility] Psychiatric Evaluation Comprehensive Examination Psychiatric Evaluation Comprehensive Examination 90172 016 JOSE DIOP [facility] Modalities Heat Hot Packs Modalities Heat Hot Packs 43845 016 CHANCE VALERO [facility] Physical Therapy: ___ Se ion Segments, 15 Minutes Each Physical Therapy: ___ Session Segments, 15 Minutes Each 25902 016 CHANCE VALERO [facility] Physical Therapy Mobilization Joint Physical Therapy Mobilization Joint 30706 016 CHANCE VALERO Physical Therapy: ___ Se ion Segments, 15 Minutes Each Physical Therapy: ___ Session Segments, 15 Minutes Each 28038 016 CHANCE VALERO Physical Therapy Mobilization Joint Physical Therapy Mobilization Joint 30974 016 CHANCE VALERO Exercises A isted Exercises For ROM Exercises Assisted Exercises For ROM 32961 016 NESHA, SURY [facility] Physical Therapy Mobilization Joint Physical Therapy Mobilization Joint 21885 016 NESHA, SURY [facility] Modalities Heat Hot Packs Modalities Heat Hot Packs 71159 016 [facility], [facility] Orthopedic Splinting Of The Finger Orthopedic Splinting Of The Finger 45425 [facility] Occupational Therapy Re-Evaluation Occupational Therapy Re-Evaluation 07637 WERNER MATIAS [facility] Physical Therapy: ___ Se ion Segments, 15 Minutes Each Physical Therapy: ___ Session Segments, 15 Minutes Each 86622 016 CHANCE VALERO Mobilization Soft Ti ue Mobilization Soft Tissue 84467 016 CHANCE VALERO Modalities Heat Hot Packs Modalities Heat Hot Packs 23448 016 CHANCE VALERO Modalities Ultrasound Modalities Ultrasound 00188 016 CHANCE VALERO Physical Therapy: ___ Se ion Segments, 15 Minutes Each Physical Therapy: ___ Session Segments, 15 Minutes Each 09723 016 CHANCE VALERO Mobilization Soft Ti ue Mobilization Soft Tissue 32655 016 CHANCE VALERO Modalities Heat Hot Packs Modalities Heat Hot Packs 21850 016 CHANCE VALERO Physical Therapy: ___ Se ion Segments, 15 Minutes Each Physical Therapy: ___ Session Segments, 15 Minutes Each 51290 016 CHANCE VALERO Modalities Heat Hot Packs Modalities Heat Hot Packs 15128 016 CHANCE VALERO Mobilization Soft Ti ue Mobilization Soft Tissue 09528 016 CHANCE VALERO Physical Therapy Mobilization Joint Physical Therapy Mobilization Joint 24244 016 [facility] Exercises A isted Exercises For ROM Exercises Assisted Exercises For ROM 55975 016 [facility]RIP [facility] Modality Ultrasound Non-Contact, Low Frequency, Non-Thermal Modality Ultrasound Non-Contact, Low Frequency, Non-Thermal 16932 016 RIP [facility] Physical Therapy: ___ Se ion Segments, 15 Minutes Each Physical Therapy: ___ Session Segments, 15 Minutes Each 06120 016 POSAVAD, TERA P [facility] Modalities Cryotherapy Cold Packs Modalities Cryotherapy Cold Packs 88986 016 POSREKHADTERA P [facility] Modalities Heat Hot Packs Modalities Heat Hot Packs 02454 016 POSAVAD, TERA P [facility] Mobilization Soft Ti ue Mobilization Soft Tissue 03645 016 POSREKHAD, TERA P [facility] Mobilization Soft Ti ue Mobilization Soft Tissue 31604 016 CHANCE VALERO [facility] Modalities Heat Hot Packs Modalities Heat Hot Packs 64112 016 CHANCE VALERO [facility] Modalities Cryotherapy Cold Packs Modalities Cryotherapy Cold Packs 96051 016 CHANCE VALERO [facility] Physical Therapy: ___ Se ion Segments, 15 Minutes Each Physical Therapy: ___ Session Segments, 15 Minutes Each 67477 016 CHANCE VALERO [facility] Postoperative Visit, Without Charge Postoperative Visit, Without Charge 51676 016 DREA ESCALANTE [facility] Occupational Therapy Re-Evaluation Occupational Therapy Re-Evaluation 67564 016 WERNER MATIAS [facility] Modalities Cryotherapy Cold Packs Modalities Cryotherapy Cold Packs 62709 016 POSTERA PRESSLEY P [facility] Physical Therapy: ___ Se ion Segments, 15 Minutes Each Physical Therapy: ___ Session Segments, 15 Minutes Each 07422 016 POSAVAD, TERA P [facility] Mobilization Soft Ti ue Mobilization Soft Tissue 98877 016 POSTERA PRESSLEY P [facility] Modalities Heat Hot Packs Modalities Heat Hot Packs 99997 016 POSAVAD, TERA P DoD Postoperative Visit, Without Charge Postoperative Visit, Without Charge 68720 016 DREA ESCALANTE [facility] Postoperative Visit, Without Charge Postoperative Visit, Without Charge 02187 016 DREA ESCLAANTE [facility] Physical Therapy: ___ Se ion Segments, 15 Minutes Each Physical Therapy: ___ Session Segments, 15 Minutes Each 18765 016 POSAVAD, TERA P DoD Mobilization Soft Ti ue Mobilization Soft Tissue 36165 016 POSAVAD, TERA P DoD Modalities Cryotherapy Cold Packs Modalities Cryotherapy Cold Packs 50362 016 POSAVAD, TERA P DoD Modalities Heat Hot Packs Modalities Heat Hot Packs 71376 016 POSAVAD, TERA P DoD Physical Therapy: ___ Se ion Segments, 15 Minutes Each Physical Therapy: ___ Session Segments, 15 Minutes Each 55690 016 POSAVAD, TERA P DoD Modalities Cryotherapy Cold Packs Modalities Cryotherapy Cold Packs 86235 016 POSAVAD, TERA P DoD Mobilization Soft Ti ue Mobilization Soft Tissue 02367 016 POSAVAD, TERA P DoD Modalities Heat Hot Packs Modalities Heat Hot Packs 31828 016 POSAVAD, TERA P DoD Modalities Cryotherapy Cold Packs Modalities Cryotherapy Cold Packs 51089 016 POSAVAD, TERA P DoD Physical Therapy: ___ Se ion Segments, 15 Minutes Each Physical Therapy: ___ Session Segments, 15 Minutes Each 08520 016 POSAVAD, TERA P DoD Mobilization Soft Ti ue Mobilization Soft Tissue 43195 016 POSAVAD, TERA P DoD Modalities Heat Hot Packs Modalities Heat Hot Packs 64297 016 POSAVAD, TERA P [facility] Occupational Therapy Re-Evaluation Occupational Therapy Re-Evaluation 30737 016 WERNER MATIAS [facility] Phys Therapy Education Self Care Training - Per 15 Minutes Phys Therapy Education Self Care Training - Per 15 Minutes 36750 016 WERNER MATIAS [facility] Physical Therapy Mobilization Joint Physical Therapy Mobilization Joint 94876 016 WERNER MATIAS [facility] Occupational Therapy Evaluation Occupational Therapy Evaluation 61421 016 WERNER MATIAS [facility] Nerve Block Local Infiltration DREA ESCALANTE [facility] Fluoroscopy Up To One Hour Physician Time DREA ESCALANTE [facility] Immunization Administration One Vaccine Immunization Administration One Vaccine 31230 JUAN DAVIS [facility] Injection, onabotulinumtoxina, 1 unit JANE VICTOR [facility] Chemodenervation Eccrine Glands Both Axillae Chemodenervation Eccrine Glands Both Axillae 90806 JANE VICTOR [facility] Hot water bottle, ice cap or collar, heat and/or cold wrap, any type JEFRY ALEXANDRA [facility] Chiropractic Manip Treatmt (CMT) Spinal Three To Four Region Chiropractic Manip Treatmt (CMT) Spinal Three To Four Region 82647 JEFRY ALEXANDRA [facility] Physical Therapy: ___ Se ion Segments, 15 Minutes Each Physical Therapy: ___ Session Segments, 15 Minutes Each 85468 015 ZAC MAGDALENO [facility] Physical Therapy Mobilization Joint Physical Therapy Mobilization Joint 82892 015 ZAC MAGDALENO [facility] Physical Therapy: ___ Se ion Segments, 15 Minutes Each Physical Therapy: ___ Session Segments, 15 Minutes Each 04823 015 RICARDO MADDOX [facility] Physical Therapy: ___ Se ion Segments, 15 Minutes Each Physical Therapy: ___ Session Segments, 15 Minutes Each 66799 015 RICARDO MADDOX [facility] Exercises A isted Exercises For ROM Exercises Assisted Exercises For ROM 41483 015 ESTELLE GONZALEZ [facility] Physical Therapy Mobilization Joint Physical Therapy Mobilization Joint 30852 015 ESTELLE GONZALEZ [facility] Phys Therapy Education Self Care Training - Per 15 Minutes Phys Therapy Education Self Care Training - Per 15 Minutes 22363 015 ESTELLE GONZALEZ [facility] Physical Medicine Physical Therapy Evaluation Physical Medicine Physical Therapy Evaluation 14491 ESTELLE GONZALEZ [facility] Physical Therapy Mobilization Joint Physical Therapy Mobilization Joint 35629 014 AZAR GUZMAN Social History Combined list of available smoking, tobacco, and 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 DoD
--- OUTSIDE RECORDS SUMMARY | 2024-08-31 11:13 | XMS_ITS | Encounter Summary ---
Author Name [facility] Address [address] [place] [address] Care Team Providers Care Faculty Neuropsychologist Name Role Phone LIBERTY GONZALEZ Primary Care [...] section includes the information on record at [place] for the Encounter. Date/Time Encounter Type Encounter Description Reason Pro vider Source Oct 03, 2023 06:19 AM Outpatient Encounter GENERAL INTERNAL MEDICINE LIBERTY GONZALEZ [facility] Encounter Template Text not used by [facility] Encounter Notes: All associated encounter notes This section contains the clinical notes associated to the Encounter. Date/Time Encounter Note(s) Provider Source Aug 20, 2023 06:19 AM NONVA NOTE: LOCAL TITLE: [facility] PRESENTING CARE COORD PLAN STANDARD TITLE: NONVA NOTE DATE OF NOTE: AUG 20, 2023@06:19 ENTRY DATE: OCT 03, 2023@06:19:44 AUTHOR: LACEY STACY COSIGNER: URGENCY: STATUS: COMPLETED Emergency Notification Intake Date Presenting to the Facility: Aug Method of Contact: Notified from ECR worklist Notification ID: [id number] [facility] Referral #: [id number] Pending Sale To [facility] Name: Hospital: [facility] Address: [address] City: [place] [place] State: [place] Zip Code: [address] Community Facility Point of Contact: Name: PARMINDER Perez Chief complaint: CORNEAL ABRASION, POKED IN EYE WITH STICK Primary Diagnosis: Disposition Discharged Date of discharge: Aug Discharge to home Status: Closed - Approved for 1703 Chief Complaint Patient presents with Eye Problem ED Course / Medical Decision Making MDM Number of Diagnoses or Management Options Diagnosis management comments: I have spoken to the patient about signs and symptoms. Patient aware that he will receive staining of eye to evaluate for corneal abrasion. Patient was draped in usual fashion. 1 drop of tetracaine applied to left eye. Patient states that this is minimally uncomfortable. Patient's left eye injected. Fluorescein strip applied to the eye. Noted fluorescein reuptake in the 5 o'clock position with moderate size corneal abrasion. No foreign body appreciated. Moderate amount of fluorescein reuptake. Patient aware that he will be placed on erythromycin eye ointment. Patient aware that he has to follow-up with medical detailist without fail. Patient comfortable with this plan has no questions or concerns. Records r/t this episode of care may be found in [facility]; also sent to [facility] for scanning. /zacarias/ LACEY STACY [facility] LEASE ATTENDANT Signed: 10/03/2023 06:23 Receipt Acknowledged By: 10/03/2023 07:55 /zacarias/ NICHOLAS EDOUARDN RN REGISTERED NURSE 10/03/2023 15:44 /zacarias/ TONY FOUNTAIN DNP,PIE BAKERY LABORER-C,DIPACLM for LACEY RAY [facility]
== END 2024-08-31 11:12 | disposition home or self-care (01) ==
PROVIDERS: Emergency Medicine; Emergency Provider Physician Assistant
DX: K20.90 Esophagitis, unspecified without bleeding (principal); R94.31 Abnormal electrocardiogram [ECG] [EKG]
CPT/HCPCS: 36415; 71046; 80053; 83690; 84484; 85025; 85610; 85730; 93005; 96374; 99284; A9270